=== PATIENT | male | born 1935 | race Caucasian/White ===

== ENCOUNTER 2016-09-17 11:27 | Emergency (ER) | payer MEDICARE ==
[~2016-09-17] VITALS: Ht 170.2 cm; Wt 78.5 kg
[~2016-09-17 11:27] MED LIST: FNT.05A2; FNT.05A2 IV; LIDO5JEL4; PANT40TA PO; SCR1T1 PO; TRAM50TA2 PO; [UNRECOGNIZED DRUG - CODE]; [UNRECOGNIZED DRUG - CODE] IV; [UNRECOGNIZED DRUG - OTHER] XX
[2016-09-17] MEDS ORDERED: NS IV 1000 ML 1,000 ML IV ONE (12:03)
[2016-09-17 12:24] LABS: BASOPHILS % (AUTO) 0 % (0-10); EOSINOPHILS # (AUTO) 0.1 10^3/uL (0.0-0.3); EOSINOPHILS % (AUTO) 2 % (0-10); LYMPHOCYTES # (AUTO) 1.4 X 10^3 (1.0-4.0); LYMPHOCYTES % (AUTO) 19 % (12-44); MEAN CORPUSCULAR HEMOGLOBIN 31 PG (25-34); MEAN CORPUSCULAR HGB CONC 33 G/DL (32-36); MEAN CORPUSCULAR VOLUME 93 FL (80-99); MEAN PLATELET VOLUME 10.3 FL (7.4-10.4); MONOCYTES % (AUTO) 13 % (0-12); NEUTROPHILS # (AUTO) 4.8 X 10^3 (1.8-7.8); NEUTROPHILS % (AUTO) 66 % (42-75); PLATELET COUNT 248 10^3/uL (130-400); RED BLOOD COUNT 4.56 10^6/uL (4.35-5.85); WHITE BLOOD COUNT 7.3 10^3/uL (4.3-11.0)
--- NOTE | 2016-09-17 12:27 | ED General ---
General Chief Complaint: Cardiac/General Problems Stated Complaint: HEART PROBLEMS Nursing Triage Note: PT C/O PALPITATIONS. HE DENIES CP, N/V, DIAPHORESIS, SOA, OR ANY OTHER SYMPTOMS. PT IS VERY VAGUE ABOUT S/S. Nursing Sepsis Screen: No Definite Risk Source of Information: Patient, Family Exam Limitations: Other (History is difficult as patient is very vague about S& S and history.) History of Present Illness Time Seen by Provider: 11:40 Initial Comments Patient presents to the ED initially reporting to the nurse that he is having palpitations, but now states he is not having palpitations. Denies having palpitations today. States he is not really sure why he is here, but "I know that I need to be here." Denies any symptoms at this time. Has been seeing Dr. Cheney for "quite a while" for intermittent left arm numbness. Was scheduled to have an outpatient study done at [facility] last Monday, but states he had diarrhea so he had to cancel it. Thinks maybe they were checking his brain, but continues to point to his carotid region. Also reports having "heart problems" but does not recall what they are or what the symptoms were. Denies SOA, headache, confusion, dizziness, lightheadedness, fever, urinary symptoms, or GI symptoms. Daughter reports having to move in with him a few months ago, because "I think he is losing it." History is difficult as patient is very vague about S&S and history. Timing/Duration: Other (patient reports "it has been going on quite a while".) Allergies and Home Medications Allergies Coded Allergies: No Known Drug Allergies (Unverified , 07/02/12) Home Medications Pantoprazole Sodium 40 Mg Tablet.dr, 40 MG PO DAILY, (Reported) Past Kttquct-Vfzswt-Lfirvu Hx Patient Social History Alcohol Use: Denies Use Recreational Drug Use: No Smoking Status: Never a Smoker 2nd Hand Smoke Exposure: No Recent Foreign Travel: No Contact w/Someone Who Travel: No Recent Infectious Disease Expo: No Recent Hopitalizations: No Surgeries HX Surgeries: Yes (HERNIa repair x2, lymph node by of the neck, c/scope) Respiratory Hx Respiratory Disorders: Yes (patient denies but history of COPD and bronchitis per past records) Respiratory Disorders: Chronic Bronchitis, COPD Cardiovascular Hx Cardiac Disorders: Yes (patient denies, but hyperlipidemia, hypertension, arrhythmia per records) Neurological Hx Neurological Disorders: No Reproductive System Hx Reproductive Disorders: No Genitourinary Hx Genitourinary Disorders: No Gastrointestinal Hx Gastrointestinal Disorders: No Musculoskeletal Hx Musculoskeletal Disorders: Yes (DEGENERTIVE JOINT DISEASE/ARTHRITIS) Endocrine Hx Endocrine Disorders: No HEENT HX 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 Physical Exam Vital Signs Vital Sign - Last 12Hours 09/17/16 11:30 Temp 98.1 Pulse 81 Resp 20 B/P (MAP) 143/82 Pulse Ox 98 O2 Delivery Room Air Capillary Refill : Less Than 3 Seconds Progress/Results/Core Measures Results/Orders Lab Results Laboratory Tests Test 09/17/16 12:05 09/17/16 13:13 Range/Units White Blood Count 7.3 4.3-11.0 10^3/uL Red Blood Count 4.56 4.35-5.85 10^6/uL Hemoglobin 14.0 13.3-17.7 G/DL Hematocrit 43 40-54 % Mean Corpuscular Volume 93 80-99 FL Mean Corpuscular Hemoglobin 31 25-34 PG Mean Corpuscular Hemoglobin Concent 33 32-36 G/DL Red Cell Distribution Width 13.0 10.0-14.5 % Platelet Count 248 130-400 10^3/uL Mean Platelet Volume 10.3 7.4-10.4 FL Neutrophils (%) (Auto) 66 42-75 % Lymphocytes (%) (Auto) 19 12-44 % Monocytes (%) (Auto) 13 H 0-12 % Eosinophils (%) (Auto) 2 0-10 % Basophils (%) (Auto) 0 0-10 % Neutrophils # (Auto) 4.8 1.8-7.8 X 10^3 Lymphocytes # (Auto) 1.4 1.0-4.0 X 10^3 Monocytes # (Auto) 1.0 0.0-1.0 X 10^3 Eosinophils # (Auto) 0.1 0.0-0.3 10^3/uL Basophils # (Auto) 0.0 0.0-0.1 10^3/uL Prothrombin Time 13.0 12.2-14.7 SEC INR Comment 1.0 0.8-1.4 Activated Partial Thromboplast Time 28 24-35 SEC D-Dimer 0.90 H 0.00-0.49 UG/ML Sodium Level 142 135-145 MMOL/L Potassium Level 4.5 3.6-5.0 MMOL/L Chloride Level 106 98-107 MMOL/L Carbon Dioxide Level 26 21-32 MMOL/L Anion Gap 10 5-14 MMOL/L Blood Urea Nitrogen 18 7-18 MG/DL Creatinine 1.13 0.60-1.30 MG/DL Estimat Glomerular Filtration Rate > 60 BUN/Creatinine Ratio 16 Glucose Level 102 70-105 MG/DL Calcium Level 9.2 8.5-10.1 MG/DL Magnesium Level 2.3 1.8-2.4 MG/DL Total Bilirubin 0.5 0.1-1.0 MG/DL Aspartate Amino Transf (AST/SGOT) 18 5-34 U/L Alanine Aminotransferase (ALT/SGPT) 18 0-55 U/L Alkaline Phosphatase 66 40-136 U/L Total Creatine Kinase 102 30-200 U/L Creatine Kinase MB 1.6 <6.6 NG/ML Myoglobin 52.3 10.0-92.0 NG/ML Troponin I < 0.30 <0.30 NG/ML Total Protein 6.2 L 6.4-8.2 G/DL Albumin 3.8 3.2-4.5 G/DL Urine Color YELLOW Urine Clarity SLIGHTLY CLOUDY Urine pH 5 5-9 Urine Specific Mar Lin 1.020 1.016-1.022 Urine Protein 3+ H NEGATIVE Urine Glucose (UA) NEGATIVE NEGATIVE Urine Ketones 1+ H NEGATIVE Urine Nitrite NEGATIVE NEGATIVE Urine Bilirubin NEGATIVE NEGATIVE Urine Urobilinogen NORMAL NORMAL MG/DL Urine Leukocyte Esterase 1+ H NEGATIVE Urine RBC (Auto) 1+ H NEGATIVE Urine RBC RARE /HPF Urine WBC RARE /HPF Urine Squamous Epithelial Cells NONE /HPF Urine Crystals NONE /LPF Urine Bacteria NEGATIVE /HPF Urine Casts NONE /LPF Urine Mucus SMALL H /LPF Urine Culture Indicated NO My Orders Orders - SHAYLA LEWIS PA Cbc With Automated Diff (09/17/16 11:49) Magnesium (09/17/16 11:49) Chest 1 View, Ap/Pa Only (09/17/16 11:49) Ekg Tracing (09/17/16 11:49) Cardiac Profile 1 (09/17/16 11:49) Comprehensive Metabolic Panel (09/17/16 11:49) Myoglobin Serum (09/17/16 11:49) Protime With Inr (09/17/16 11:49) Partial Thromboplastin Time (09/17/16 11:49) Monitor-Rhythm Ecg Trace Only (09/17/16 11:49) Lipid Panel (09/18/16 06:00) Saline Lock/Iv-Start (09/17/16 11:49) Creatine Kinase (09/17/16 11:49) Creatine Kinase Mb (09/17/16 11:49) Fibrin Degradation Products (09/17/16 11:49) Ct Head Wo (09/17/16 12:03) Ua Culture If Indicated (09/17/16 12:03) Ns Iv 1000 Ml (Sodium Chloride 0.9%) (09/17/16 12:03) Medications Given in ED Current Medications Medications Dose Ordered Sig/Kimmy Route Start Time Stop Time Status Last Admin Dose Admin Sodium Chloride 1,000 ml @ 0 mls/hr Q0M ONCE IV 09/17/16 12:03 09/17/16 12:05 DC 09/17/16 12:14 0 MLS/HR Vital Signs/I&O Vital Sign - Last 12Hours 09/17/16 11:30 Temp 98.1 Pulse 81 Resp 20 B/P (MAP) 143/82 Pulse Ox 98 O2 Delivery Room Air Blood Pressure Mean: 102 Departure Impression Impression: Primary Impression: Well adult Additional Impression: Volume depletion Disposition: 01 HOME, SELF-CARE Condition: Improved Departure-Patient Inst. Decision time for Depature: 14:37 Referrals: DOLORES MADDOX MD FACP FACC CCDS Elsa TALLEY MD, BASHAR J MD SEGLIE, FLOYD R MD (PCP/Family) Primary Care Physician Patient Instructions: Dehydration, Adult (DC), Chest Pain (DC) Add. Discharge Instructions: All discharge instructions reviewed with patient and/or family. Voiced understanding. 81 mg aspirin daily. Continue usual home medications. Drink plenty of fluids. Follow-up with Dr. Cheney on Monday for recheck and possible need for MRI of the brain, contact their office first thing Monday morning for appointment time. Follow-up with the fish hatchery manager of your choice as an outpatient this week for further evaluation and management, contact their office for appointment time. Return to the emergency department for chest pain , shortness of air, dizziness, changes in behavior, slurred speech, weakness, fever, vomiting, inability to urinate, headache, numbness, or any other concerns. SHAYLA LEWIS September 17, 2016 12:27
[2016-09-17 12:39] LABS: ALANINE AMINOTRANSFERASE 18 U/L (0-55); ALBUMIN 3.8 G/DL (3.2-4.5); ANION GAP 10 MMOL/L (5-14); ASPARTATE AMINO TRANSFERASE 18 U/L (5-34); BILIRUBIN,TOTAL 0.5 MG/DL (0.1-1.0); BLOOD UREA NITROGEN 18 MG/DL (7-18); BUN/CREATININE RATIO 16; CALCIUM 9.2 MG/DL (8.5-10.1); CARBON DIOXIDE 26 MMOL/L (21-32); CHLORIDE 106 MMOL/L (98-107); CREATINE KINASE 102 U/L (30-200); CREATININE SERUM 1.13 MG/DL (0.60-1.30); GFR ESTIMATED > 60; GLUCOSE 102 MG/DL (70-105); MAGNESIUM 2.3 MG/DL (1.8-2.4); POTASSIUM 4.5 MMOL/L (3.6-5.0); SODIUM 142 MMOL/L (135-145); TOTAL PROTEIN 6.2 G/DL (6.4-8.2)
[2016-09-17 12:47] LABS: MYOGLOBIN SERUM 52.3 NG/ML (10.0-92.0)
--- NOTE | 2016-09-17 13:02 | Diagnostic Imaging Report ---
Indication: Heart problems, confusion Comparison: None available Technique: Single frontal radiograph view of the chest dated September 17, 2016. Findings: The cardiac silhouette is mildly enlarged. No significant pulmonary vascular congestion. Senescent changes of the lungs without focal pulmonary opacity. No pleural effusion. No pneumothorax. No acute osseous abnormality. Impression: Mild cardiomegaly without overt congestive heart failure or additional superimposed acute cardiopulmonary abnormality. Dictated by: Dictated on workstation # [id number]
[2016-09-17 13:24] LABS: BILIRUBIN,URINE NEGATIVE (NEGATIVE); KETONES,URINE 1+ (NEGATIVE); LEUKOCYTE ESTERASE ,URINE 1+ (NEGATIVE); NITRITE,URINE NEGATIVE (NEGATIVE); PH,URINE 5 (5-9); PROTEIN,URINE 3+ (NEGATIVE); UROBILINOGEN,URINE NORMAL (NORMAL)
--- NOTE | 2016-09-17 13:33 | Diagnostic Imaging Report ---
PROCEDURE: CT head without contrast. TECHNIQUE: Multiple contiguous axial images were obtained through the brain without the use of intravenous contrast. DATE: September 17, 2016. COMPARISON: None. INDICATION: 81-year-old male, confusion. FINDINGS: The ventricles and cerebral spinal fluid spaces are of normal size and configuration for the patient's age. There is no mass effect or midline shift. There is no acute intracranial hemorrhage. There is no abnormal extra-axial fluid collection. The visualized portions of the paranasal sinuses, mastoid air cells and middle ears are well aerated. IMPRESSION: 1. No identified acute intracranial abnormality. Dictated by: Dictated on workstation # [id number]
[2016-09-17 13:45] LABS: WBC,URINE RARE /HPF
[2016-09-17 14:41] VITALS: BP 143/82
== END 2016-09-17 14:41 | disposition home or self-care (01) ==
LOC: EDUNIT# 11:27 → ER 11:29
DX: E87.6 Hypokalemia (principal); I25.10 Atherosclerotic heart disease of native coronary artery without angina pectoris; E78.5 Hyperlipidemia, unspecified; I10 Essential (primary) hypertension; J44.9 Chronic obstructive pulmonary disease, unspecified; Z79.899 Other long term (current) drug therapy
CPT/HCPCS: 36415; 70450; 71010; 80053; 81000; 82550; 82553; 83735; 83874; 84484; 85025; 85379; 85610; 85730; 93005; 93041; 96360

== ENCOUNTER → 2016-09-26 | Outpatient (CLI) | payer MEDICARE ==
[2016-09-26 10:15] LABS: BASOPHILS % (AUTO) 0 % (0-10); EOSINOPHILS # (AUTO) 0.2 10^3/uL (0.0-0.3); EOSINOPHILS % (AUTO) 3 % (0-10); LYMPHOCYTES # (AUTO) 1.5 X 10^3 (1.0-4.0); LYMPHOCYTES % (AUTO) 29 % (12-44); MEAN CORPUSCULAR HEMOGLOBIN 30 PG (25-34); MEAN CORPUSCULAR HGB CONC 33 G/DL (32-36); MEAN CORPUSCULAR VOLUME 92 FL (80-99); MEAN PLATELET VOLUME 10.1 FL (7.4-10.4); MONOCYTES # (AUTO) 0.6 X 10^3 (0.0-1.0); MONOCYTES % (AUTO) 13 % (0-12); NEUTROPHILS # (AUTO) 2.8 X 10^3 (1.8-7.8); NEUTROPHILS % (AUTO) 55 % (42-75); PLATELET COUNT 259 10^3/uL (130-400); RED CELL DISTRIBUTION WIDTH 12.8 % (10.0-14.5); WHITE BLOOD COUNT 5.1 10^3/uL (4.3-11.0)
[2016-09-26 10:39] LABS: ALANINE AMINOTRANSFERASE 21 U/L (0-55); ALBUMIN 4.2 G/DL (3.2-4.5); ANION GAP 10 MMOL/L (5-14); ASPARTATE AMINO TRANSFERASE 20 U/L (5-34); BILIRUBIN,TOTAL 0.4 MG/DL (0.1-1.0); BLOOD UREA NITROGEN 15 MG/DL (7-18); BUN/CREATININE RATIO 16; CALCIUM 9.5 MG/DL (8.5-10.1); CARBON DIOXIDE 25 MMOL/L (21-32); CHLORIDE 105 MMOL/L (98-107); CREATININE SERUM 0.96 MG/DL (0.60-1.30); GFR ESTIMATED > 60; GLUCOSE 103 MG/DL (70-105); POTASSIUM 4.5 MMOL/L (3.6-5.0); SODIUM 140 MMOL/L (135-145); TOTAL PROTEIN 6.7 G/DL (6.4-8.2)
[2016-09-27 08:02] LABS: FOLIC ACID >24.0 ng/mL (1.5-24.0)
== END ==
LOC: LAB 09:42
PROVIDERS: ATTEND Family Medicine
DX: R29.898 Other symptoms and signs involving the musculoskeletal system (principal)
CPT/HCPCS: 36415; 80053; 82607; 82746; 85025

== ENCOUNTER → 2016-10-06 | Outpatient (CLI) | payer MEDICARE ==
[~2016-10-06] MED LIST changes: +CATHETER FLUSH 10 ML SYR IV PRN; +IOHEXOL 350 MG/ML 100 ML (OMNIPAQUE 350) VIAL IV ONE; +NS 100 ML (IVPB) BAG IV ONE
[2016-10-06 08:26] LABS: BASOPHILS % (AUTO) 0 % (0-10); EOSINOPHILS # (AUTO) 0.2 10^3/uL (0.0-0.3); EOSINOPHILS % (AUTO) 4 % (0-10); LYMPHOCYTES # (AUTO) 2.1 X 10^3 (1.0-4.0); LYMPHOCYTES % (AUTO) 31 % (12-44); MEAN CORPUSCULAR HEMOGLOBIN 30 PG (25-34); MEAN CORPUSCULAR HGB CONC 33 G/DL (32-36); MEAN CORPUSCULAR VOLUME 91 FL (80-99); MEAN PLATELET VOLUME 10.3 FL (7.4-10.4); MONOCYTES # (AUTO) 0.6 X 10^3 (0.0-1.0); MONOCYTES % (AUTO) 9 % (0-12); NEUTROPHILS # (AUTO) 3.8 X 10^3 (1.8-7.8); NEUTROPHILS % (AUTO) 56 % (42-75); PLATELET COUNT 171 10^3/uL (130-400); RED BLOOD COUNT 4.88 10^6/uL (4.35-5.85); WHITE BLOOD COUNT 6.9 10^3/uL (4.3-11.0)
[2016-10-06 08:46] LABS: ALANINE AMINOTRANSFERASE 24 U/L (0-55); ALBUMIN 4.1 G/DL (3.2-4.5); ANION GAP 11 MMOL/L (5-14); ASPARTATE AMINO TRANSFERASE 24 U/L (5-34); BILIRUBIN,TOTAL 0.5 MG/DL (0.1-1.0); BLOOD UREA NITROGEN 20 MG/DL (7-18); BUN/CREATININE RATIO 22; CALCIUM 9.4 MG/DL (8.5-10.1); CARBON DIOXIDE 23 MMOL/L (21-32); CHLORIDE 107 MMOL/L (98-107); CREATININE SERUM 0.93 MG/DL (0.60-1.30); GFR ESTIMATED > 60; GLUCOSE 105 MG/DL (70-105); POTASSIUM 4.2 MMOL/L (3.6-5.0); SODIUM 141 MMOL/L (135-145); TOTAL PROTEIN 6.6 G/DL (6.4-8.2)
--- NOTE | 2016-10-06 10:33 | Diagnostic Imaging Report ---
PROCEDURE: CT head with and without contrast. TECHNIQUE: Multiple contiguous axial images were obtained through the brain before and after the administration of intravenous contrast. INDICATION: Left arm weakness. FINDINGS: The unenhanced phase demonstrates no intracranial hemorrhage. There is periventricular and deep white matter hypodensities suggestive of chronic microvascular ischemic changes and appear similar to prior exam of 09/17/16 with no associated mass effect or postcontrast enhancement. No enhancing mass in the brain or extra-axial space identified. Vascular enhancement appears grossly unremarkable. The calvarium, the paranasal sinuses and orbits appear grossly unremarkable. IMPRESSION: White matter findings are compatible with chronic microvascular ischemic changes. No acute process. Dictated by: Dictated on workstation # [id number]
--- NOTE | 2016-10-06 14:16 | Diagnostic Imaging Report ---
PROCEDURE: MR imaging cervical spine without contrast. TECHNIQUE: Multiplanar, multisequence MR imaging of the cervical spine was performed without contrast. INDICATION: Left hand numbness. History of fall in July 2015. FINDINGS: There is straightening of the upper to mid cervical spine. The vertebral body heights are preserved. There is mild disc height loss at C4/5 and C5/6 with endplate irregularity and associated posterior osteophytes at C4/5. There is no significant marrow signal abnormality. The foramen magnum and upper cervical canal are widely patent. Spinal cord has normal signal. C2/3: No disc herniation, no spinal canal or foraminal stenosis. C3/4: There is minimal disc spur complex with no spinal canal stenosis. Uncovertebral and facet hypertrophy, worse on the left, results in [id number] left foraminal stenosis. There is mild foramina stenosis on the right. C4/5: There is a disc spur complex eccentric to the right resulting in moderate central canal stenosis reducing the AP dimension of the central canal to 7 mm and is associated with minimal cord compression. No cord signal abnormality. The foramina demonstrate bilateral severe stenosis. C5/6: There is a right paracentral and right uncovertebral posteriorly projecting osteophyte seen. No central canal stenosis. There is mild stenosis of the AP dimension of the right side of the canal, however. No cord compression. The foramina demonstrate moderate stenosis on the left and severe stenosis on the right. C6/7: There is a mild disc spur complex and posterior ligamentous hypertrophy. No central canal stenosis or cord compression. The foramina demonstrate severe stenosis on the left and mild stenosis on the right. C7/T1: No disc herniation, no spinal canal or foraminal stenosis. IMPRESSION: There is [id number] spinal canal stenosis at the C4/5 level with associated minimal cord compression. No cord signal abnormality. There is multilevel severe foraminal stenosis. Dictated by: Dictated on workstation # [id number]
[2016-10-07 07:15] LABS: FOLIC ACID >24.0 ng/mL (1.5-24.0)
== END ==
LOC: RAD 07:57
PROVIDERS: ATTEND Family Medicine
DX: M48.02 Spinal stenosis, cervical region (principal); R20.2 Paresthesia of skin; R29.898 Other symptoms and signs involving the musculoskeletal system
CPT/HCPCS: 36415; 70470; 72141; 80053; 82607; 82746; 85025

== ENCOUNTER 2017-01-19 08:51 | Outpatient (RCR) | payer MEDICARE, OTHER ==
[~2017-01-19 08:51] MED LIST changes: -CATHETER FLUSH 10 ML SYR IV PRN; -IOHEXOL 350 MG/ML 100 ML (OMNIPAQUE 350) VIAL IV ONE; -NS 100 ML (IVPB) BAG IV ONE
== END 2017-02-01 | disposition home or self-care (01) ==
PROVIDERS: ATTEND Family Medicine
DX: R20.0 Anesthesia of skin (principal); R20.2 Paresthesia of skin

== ENCOUNTER 2017-06-25 18:06 | Emergency (ER) | payer MEDICARE ==
[~2017-06-25] VITALS: Ht 182.9 cm; Wt 81.6 kg
--- OUTSIDE RECORDS SUMMARY | 2017-06-25 18:13 | XMS REPORT | Continuity of Care Document ---
Author Author [facility] Organization [facility] Address Unknown Phone Unavailable Allergies Active Description Code Type Severity Reaction Onset Reported/Identified Relationship to Patient Clinical Status Yes No Known Drug Allergies [id number] Drug Allergy Unknown N/A 07/02/2012 Medications There is no data. 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, TYPE II OR UNSPEC TY 11/27/2012 DIXIE YUNG Ot 585.3 CHRONIC KIDNEY DISEASE, STAGE III (MODER 11/27/2012 DIXIE YUNG Ot V58.11 ENCOUNTER FOR ANTINEOPLASTIC CHEMOTHERAP 02/13/2013 MIGUEL GREEN MD Ot 202.80 OTH LYMPHOMAS EXTRANODAL SOLID ORGAN U 02/13/2013 MIGUEL GREEN MD Ot 455.0 INT HEMORRHOID W/O COMPL 02/13/2013 MIGUEL GREEN MD Ot V67.51 F/U EXAM-HIGH RISK RX 03/19/2013 DIXIE YUNG Ot 202.80 OTH LYMPHOMAS EXTRANODAL SOLID ORGAN U 03/19/2013 DIXIE YUNG Ot 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, TYPE II OR UNSPEC TY 03/19/2013 DIXIE YUNG Ot 585.3 CHRONIC KIDNEY DISEASE, STAGE III (MODER 04/05/2013 SHAYLA CARPIO Ot 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 04/05/2013 SHAYLA CARPIO Ot 784.99 OTHER SYMPTOMS INVOLVING HEAD AND NECK 04/05/2013 SHAYLA CARPIO Ot 787.20 DYSPHAGIA, UNSPECIFIED 04/17/2013 MIGUEL GREEN MD Ot 202.80 OTH LYMPHOMAS EXTRANODAL SOLID ORGAN U 04/17/2013 MIGUEL GREEN MD Ot 530.11 REFLUX ESOPHAGITIS 04/17/2013 MIGUEL GREEN MD Ot 535.50 UNSP GASTRITIS GASTRODUODENITIS W/O ME 04/17/2013 MIGUEL GREEN MD Ot 553.3 DIAPHRAGMATIC HERNIA 08/13/2013 DIXIE YUNG N Ot 202.80 OTH LYMPHOMAS EXTRANODAL SOLID ORGAN U 08/13/2013 DIXIE YUNG N Ot 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, TYPE II OR UNSPEC TY 08/13/2013 DIXIE YUNG N Ot 585.3 CHRONIC KIDNEY DISEASE, STAGE III (MODER 08/13/2013 DIXIE YUNG N Ot V58.11 ENCOUNTER FOR ANTINEOPLASTIC CHEMOTHERAP 12/04/2013 DIXIE YUNG N Ot 202.80 OTH LYMPHOMAS EXTRANODAL SOLID ORGAN U 12/04/2013 DILSHADDIXIE CEVALLOS N Ot 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, TYPE II OR UNSPEC TY 12/04/2013 DIXIE YUNG N Ot 585.3 CHRONIC KIDNEY DISEASE, STAGE III (MODER 12/04/2013 DILSHADDIXIE N Ot V58.11 ENCOUNTER FOR ANTINEOPLASTIC CHEMOTHERAP 01/15/2014 LAVERNE CHRISTIANSON DO Ot 719.46 JOINT PAIN-L/LEG 03/26/2014 DILSHADDIXIE CEVALLOS N Ot 202.80 OTH LYMPHOMAS EXTRANODAL SOLID ORGAN U 03/26/2014 DILSHADSIVAKUMARAN N Ot 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, TYPE II OR UNSPEC TY 03/26/2014 DIXIE YUNG N Ot 585.3 CHRONIC KIDNEY DISEASE, STAGE III (MODER 03/26/2014 DILSHADDIXIE N Ot V58.11 ENCOUNTER FOR ANTINEOPLASTIC CHEMOTHERAP 03/26/2014 DIXIE YUNG N Ot V58.69 OTH MED,LT,CURRENT USE 04/16/2014 DIXIE YUNG N Ot 202.80 04/16/2014 DILSHAD, BOBAN N Ot 250.00 04/16/2014 DILSHAD, BOBAN N Ot 585.3 04/16/2014 DILSHAD, BOBAN N Ot V58.11 04/16/2014 DILSHAD, BOBAN N Ot V58.69 04/18/2014 DILSHAD, BOBAN N Ot 202.80 04/18/2014 DILSHAD, BOBAN N Ot 250.00 04/18/2014 DILSHAD, BOBAN N Ot 585.3 04/18/2014 DILSHAD, BOBAN N Ot V58.11 04/18/2014 DILSHAD, BOBAN N Ot V58.69 05/06/2014 DILSHAD, BOBAN N Ot 202.80 05/06/2014 DILSHAD, BOBAN N Ot 250.00 05/06/2014 DILSHAD, BOBCARMEN N Ot 585.3 05/06/2014 DILSHAD, BOBAN N Ot V58.11 05/06/2014 DILSHAD, BOBAN N Ot V58.69 05/07/2014 [facility]IS [facility] SURVEYOR Ot 202.80 05/07/2014 DAVIS [facility] SURVEYOR Ot 250.00 05/07/2014 DAVIS [facility] SURVEYOR Ot 585.3 05/07/2014 DAVIS [facility] SURVEYOR Ot V58.69 06/18/2014 DILSHAD, BOBAN N Ot 202.80 06/18/2014 DILSHAD, BOBAN N Ot 250.00 06/18/2014 DILSHAD, BOBAN N Ot 585.3 06/18/2014 DILSHADDIXIE N Ot V58.11 06/18/2014 DILSHAD BOBAN N Ot V58.69 07/15/2014 DILSHAD, BOBAN N Ot 202.80 OTH LYMPHOMAS EXTRANODAL SOLID ORGAN U 07/15/2014 DILSHAD, BOBAN N Ot 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, TYPE II OR UNSPEC TY 07/15/2014 DILSHAD, BOBAN N Ot 585.3 CHRONIC KIDNEY DISEASE, STAGE III (MODER 07/15/2014 DILSHAD BOBAN N Ot V58.11 ENCOUNTER FOR ANTINEOPLASTIC CHEMOTHERAP 07/15/2014 DILSHADSIVAKUMARAN N Ot V58.69 OTH MED,LT,CURRENT USE 08/13/2014 DILSHAD BOBAN N Ot 202.80 08/13/2014 DILSHAD, BOBAN N Ot 250.00 08/13/2014 DILSHAD, BOBCARMEN N Ot 585.3 08/13/2014 DILSHAD, BOBAN N Ot V58.11 08/13/2014 DILSHAD, BOBCARMEN N Ot V58.69 08/14/2014 DILSHAD, BOBAN N Ot 202.80 08/14/2014 DILSHAD, BOBAN N Ot 250.00 08/14/2014 DILSHAD, DIXIE N Ot 585.3 08/14/2014 DILSHAD, DIXIE N Ot V58.11 08/14/2014 DILSHAD, BOBCARMEN N Ot V58.69 08/20/2014 DILSHAD, BOBAN N Ot 202.80 08/20/2014 DILSHAD, BOBCARMEN N Ot 250.00 08/20/2014 DILSHAD, DIXIE N Ot 585.3 08/20/2014 DILSHAD, BOBCARMEN N Ot V58.11 08/20/2014 DILSHAD, BOBCARMEN N Ot V58.69 08/20/2014 DILSHAD, BOBCARMEN N Ot 202.80 08/20/2014 DILSHAD, DIXIE N Ot 250.00 08/20/2014 DILSHAD, DIXIE N Ot 585.3 08/20/2014 DILSHAD, DIXIE N Ot V58.11 08/20/2014 DILSHAD, BOBCARMEN N Ot V58.69 09/09/2014 [facility] SURVEYOR Ot 202.80 09/09/2014 DAVIS [facility] SURVEYOR Ot 250.00 09/09/2014 DAVIS MCCLENDON S HEALTH FACILITIES SURVEYOR Ot 585.3 09/09/2014 DAVIS MCCLENDON S HEALTH FACILITIES SURVEYOR Ot V58.69 10/29/2014 DAVIS MCCLENDON S HEALTH FACILITIES SURVEYOR Ot 202.80 10/29/2014 DAVIS MCCLENDON S HEALTH FACILITIES SURVEYOR Ot 250.00 10/29/2014 DAVIS MCCLENDON S HEALTH FACILITIES SURVEYOR Ot 585.3 10/29/2014 DAVIS MCCLENDON S HEALTH FACILITIES SURVEYOR Ot V58.69 11/11/2014 DILSHAD, DIXIE N Ot 202.80 OTH LYMPHOMAS EXTRANODAL SOLID ORGAN U 11/11/2014 DILSHAD, BOBAN N Ot 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, TYPE II OR UNSPEC TY 11/11/2014 DILSHAD BOBCARMEN N Ot 585.3 CHRONIC KIDNEY DISEASE, STAGE III (MODER 11/11/2014 DILSHAD, DIXIE N Ot V58.11 ENCOUNTER FOR ANTINEOPLASTIC CHEMOTHERAP 11/11/2014 DILSHAD, DIXIE N Ot V58.69 OTH MED,LT,CURRENT USE 12/24/2014 DILSHAD, DIXIE N Ot 202.80 12/24/2014 DILSHAD, BOBAN N Ot 250.00 12/24/2014 DILSHAD, BOBAN N Ot 585.3 12/24/2014 DILSHAD, BOBAN N Ot V58.11 12/24/2014 DILSHAD, BOBAN N Ot V58.69 12/30/2014 DILSHAD, BOBAN N Ot 202.80 12/30/2014 DILSHAD, BOBAN N Ot 250.00 12/30/2014 DILSHAD, BOBCARMEN N Ot 585.3 12/30/2014 DILSHAD, BOBAN N Ot V58.11 12/30/2014 DILSHAD, BOBAN N Ot V58.69 01/01/2015 DILSHAD, BOBAN N Ot 202.80 01/01/2015 DILSHAD, BOBAN N Ot 250.00 01/01/2015 DILSHAD, BOBAN N Ot 585.3 01/01/2015 DILSHAD, BOBAN N Ot V58.11 01/01/2015 DILSHAD, BOBAN N Ot V58.69 01/28/2015 DILSHAD, BOBAN N Ot 202.80 01/28/2015 DILSHAD, BOBAN N Ot 250.00 01/28/2015 DILSHAD, BOBAN N Ot 585.3 01/28/2015 DILSHAD, BOBAN N Ot V58.69 01/28/2015 Ot 784.2 01/28/2015 Ot V16.9 01/28/2015 Ot 784.2 01/28/2015 Ot 202.80 01/28/2015 Ot 250.00 01/28/2015 DAVIS [facility] SURVEYOR Ot 202.80 01/28/2015 DAVIS [facility] SURVEYOR Ot 202.80 01/28/2015 DAVIS [facility] SURVEYOR Ot 250.00 01/28/2015 DAVIS [facility] SURVEYOR Ot 585.3 01/28/2015 DAVIS [facility] SURVEYOR Ot 202.80 01/28/2015 DAVIS [facility] SURVEYOR Ot 250.00 01/28/2015 [facility] S [facility] FACILIT[facility] SURVEYOR Ot 585.3 01/28/2015 HAKAN [facility] S [facility] FACILIT[facility] SURVEYOR Ot 202.80 01/28/2015 HAKAN DAVIS S HEALTH FACILITIES SURVEYOR Ot 202.80 01/28/2015 MCCLENDONBYRON S HEALTH FACILITIES SURVEYOR Ot 250.00 01/28/2015 HAKAN [facility] S [facility] FACILIT[facility] SURVEYOR Ot 585.3 01/28/2015 PETER CACERES, MIGUEL Ot V72.84 01/28/2015 PETER CACERES, MIGUEL Ot V72.84 01/28/2015 HAKAN [facility] S HE[facility] FACILITIES SURVEYOR Ot 202.80 01/28/2015 [facility] S HEALTH FACILITIES SURVEYOR Ot 250.00 01/28/2015 HAKAN [facility] S [facility] FACILITIES SURVEYOR Ot 585.3 01/28/2015 HAKAN [facility] S [facility]AC[facility] SURVEYOR Ot 202.80 01/28/2015 HAKAN [facility] S [facility] FACILIT[facility] SURVEYOR Ot 250.00 01/28/2015 [facility]AKAN [facility] S HEALTH FACILITIES SURVEYOR Ot 585.3 01/28/2015 [facility]AN [facility] S HEALTH FACILITIES SURVEYOR Ot 202.80 01/28/2015 [facility] S HEALTH FACILITIES SURVEYOR Ot 250.00 01/28/2015 HAKAN [facility] S [facility] FACILITIES SURVEYOR Ot 585.3 01/28/2015 HAKAN [facility] S [facility] FACILITIES SURVEYOR Ot V58.69 01/28/2015 [facility] S HEALTH FACILITIES SURVEYOR Ot 202.80 01/28/2015 [facility] S HEALTH FACILITIES SURVEYOR Ot 250.00 01/28/2015 [facility] S HE[facility] FACILITIES SURVEYOR Ot 585.3 01/28/2015 [facility] S HEALTH FACILITIES SURVEYOR Ot V58.69 01/28/2015 [facility] S HE[facility] FACILITIES SURVEYOR Ot 202.80 01/28/2015 [facility] S HEALTH FACILITIES SURVEYOR Ot 250.00 01/28/2015 [facility] S HE[facility] FACILITIES SURVEYOR Ot 585.3 01/28/2015 [facility] S HEALTH FACILITIES SURVEYOR Ot V58.69 01/28/2015 [facility] S HE[facility] FACILITIES SURVEYOR Ot 202.80 01/28/2015 [facility] S HE[facility] FACILITIES SURVEYOR Ot 250.00 01/28/2015 [facility] S HE[facility] FACILITIES SURVEYOR Ot 585.3 01/28/2015 DAVIS [facility] SURVEYOR Ot V58.69 01/28/2015 DIXIE YUNG N Ot 202.80 01/28/2015 DIXIE YUNG N Ot 250.00 01/28/2015 DIXIE YUNG N Ot 585.3 01/28/2015 DIXIE YUNG N Ot V58.69 02/04/2015 DIXIE YUNG Ot 202.80 OTH LYMPHOMAS EXTRANODAL SOLID ORGAN U 02/04/2015 DIXIE YUNG N Ot 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, TYPE II OR UNSPEC TY 02/04/2015 DIXIE YUNG N Ot 585.3 CHRONIC KIDNEY DISEASE, STAGE III (MODER 02/04/2015 DIXIE YUNG Ot V58.69 OTH MED,LT,CURRENT USE 03/25/2015 Ot 784.2 03/25/2015 Ot V16.9 03/25/2015 Ot 784.2 03/25/2015 Ot 202.80 03/25/2015 Ot 250.00 03/25/2015 DAVIS [facility] SURVEYOR Ot 202.80 03/25/2015 DAVIS [facility] SURVEYOR Ot 202.80 03/25/2015 DAVIS MCCLENDON S HE[facility] FACILITIES SURVEYOR Ot 250.00 03/25/2015 DAVIS MCC[facility]END[facility]AC[facility] SURVEYOR Ot 585.3 03/25/2015 DAVIS [facility] SURVEYOR Ot 202.80 03/25/2015 DAVIS MCCLENDON S HEALTH FACILITIES SURVEYOR Ot 250.00 03/25/2015 DAVIS MCCLENDON S HEALTH FACILITIES SURVEYOR Ot 585.3 03/25/2015 DAVIS MCCLENDON S HEALTH FACILITIES SURVEYOR Ot 202.80 03/25/2015 DAVIS MCC[facility]ENDON [facility]ACIL[facility] SURVEYOR Ot 202.80 03/25/2015 DAVIS [facility]CC[facility]ENDON [facility]AC[facility] SURVEYOR Ot 250.00 03/25/2015 DAVIS [facility]END[facility] SURVEYOR Ot 585.3 03/25/2015 MIGUEL GREEN MD Ot V72.84 03/25/2015 MIGUEL GREEN MD Ot V72.84 03/25/2015 DAVIS [facility]END[facility] SURVEYOR Ot 202.80 03/25/2015 DAVIS MCCLENDON S HEALTH FACILITIES SURVEYOR Ot 250.00 03/25/2015 DAVIS MCCLENDON [facility] FACILITIES SURVEYOR Ot 585.3 03/25/2015 MCCLENDON, HILAH S HEALTH FACILITIES SURVEYOR Ot 202.80 03/25/2015 MCCLENDONDAVIS Foster S HEALTH FACILITIES SURVEYOR Ot 250.00 03/25/2015 MCCLENDONDAVIS Foster S HEALTH FACILITIES SURVEYOR Ot 585.3 03/25/2015 MCCLENDONDAVIS S HEALTH FACILITIES SURVEYOR Ot 202.80 03/25/2015 MCCLENDONDAVIS Foster S HEALTH FACILITIES SURVEYOR Ot 250.00 03/25/2015 MCCLENDONDAVIS S HEALTH FACILITIES SURVEYOR Ot 585.3 03/25/2015 MCCLENDONDAVIS S HEALTH FACILITIES SURVEYOR Ot V58.69 03/25/2015 MCCLENDONDAVIS S HEALTH FACILITIES SURVEYOR Ot 202.80 03/25/2015 MCCLENDONDAVIS Foster S HEALTH FACILITIES SURVEYOR Ot 250.00 03/25/2015 MCCLENDONDAVIS S HEALTH FACILITIES SURVEYOR Ot 585.3 03/25/2015 MCCLENDONDAVIS Foster S HEALTH FACILITIES SURVEYOR Ot V58.69 03/25/2015 HAKANDAVIS S HEALTH FACILITIES SURVEYOR Ot 202.80 03/25/2015 HAKANDAVIS S HEALTH FACILITIES SURVEYOR Ot 250.00 03/25/2015 MCCLENDONDAVIS Foster S HEALTH FACILITIES SURVEYOR Ot 585.3 03/25/2015 MCCLENDONDAVIS Foster S HEALTH FACILITIES SURVEYOR Ot V58.69 03/25/2015 MCCLENDONDAVIS Foster S HEALTH FACILITIES SURVEYOR Ot 202.80 03/25/2015 MCCLENDONDAVIS Foster S HEALTH FACILITIES SURVEYOR Ot 250.00 03/25/2015 MCCLENDONDAVIS Foster S HEALTH FACILITIES SURVEYOR Ot 585.3 03/25/2015 MCCLENDONDAVIS Foster S HEALTH FACILITIES SURVEYOR Ot V58.69 04/15/2015 HAKAN DAVIS S HEALTH FACILITIES SURVEYOR Ot C85.80 04/15/2015 HAKAN DAVIS S HEALTH FACILITIES SURVEYOR Ot E11.9 04/15/2015 MCCLENDONDAVIS Foster S HEALTH FACILITIES SURVEYOR Ot N18.3 04/15/2015 HAKANDAVIS S HEALTH FACILITIES SURVEYOR Ot Z79.899 06/23/2015 DIXIE YUNG Ot 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, UNSPE 06/23/2015 DIXIE YUNG Ot E11.9 TYPE 2 DIABETES MELLITUS WITHOUT COMPLIC 06/23/2015 DIXIE YUNG Ot N18.3 CHRONIC KIDNEY DISEASE, STAGE 3 (MODERAT 06/23/2015 DIXIE YUNG Ot Z79.899 OTHER NORMALIZER (CURRENT) DRUG THERAPY 06/25/2015 DIXIE YUNG N Ot C85.80 06/25/2015 DIXIE YUNG N Ot E11.9 06/25/2015 DIXIE YUNG N Ot N18.3 06/25/2015 DIXIE YUNG N Ot Z79.899 07/28/2015 DIXIE YUNG N Ot C85.80 07/28/2015 DIXIE YUNG N Ot E11.22 07/28/2015 DIXIE YUNG N Ot N18.3 07/28/2015 DIXIE YUNG N Ot Z79.899 07/29/2015 Ot 784.2 07/29/2015 Ot V16.9 07/29/2015 Ot 784.2 07/29/2015 Ot 202.80 07/29/2015 Ot 250.00 07/29/2015 DAVIS MCCLENDON S HEALTH FACILITIES SURVEYOR Ot 202.80 07/29/2015 DAVIS MCCLENDON S HEALTH FACILITIES SURVEYOR Ot 202.80 07/29/2015 DAVIS MCCLENDON S HEALTH FACILITIES SURVEYOR Ot 250.00 07/29/2015 BYRON MCCLENDONAH S HEALTH FACILITIES SURVEYOR Ot 585.3 07/29/2015 BYRON MCCLENDONAH S HEALTH FACILITIES SURVEYOR Ot 202.80 07/29/2015 HAKAN HILAH S HEALTH FACILITIES SURVEYOR Ot 250.00 07/29/2015 BYRON MCCLENDONAH S HEALTH FACILITIES SURVEYOR Ot 585.3 07/29/2015 BYRON MCCLENDONAH S HEALTH FACILITIES SURVEYOR Ot 202.80 07/29/2015 BYRON MCCLENDONAH S HEALTH FACILITIES SURVEYOR Ot 202.80 07/29/2015 BYRON MCCLENDONAH S HEALTH FACILITIES SURVEYOR Ot 250.00 07/29/2015 BYRON MCCLENDONAH S HEALTH FACILITIES SURVEYOR Ot 585.3 07/29/2015 PETER CACERES, MIGUEL Ot V72.84 07/29/2015 MIGUEL GREEN MD Ot V72.84 07/29/2015 DAVIS MCCLENDON S HEALTH FACILITIES SURVEYOR Ot 202.80 07/29/2015 HAKAN HILAH S HEALTH FACILITIES SURVEYOR Ot 250.00 07/29/2015 MCCLENDON, HILAH S HEALTH FACILITIES SURVEYOR Ot 585.3 07/29/2015 MCCLENDON, HILAH S HEALTH FACILITIES SURVEYOR Ot 202.80 07/29/2015 DAVIS MCCLENDON S HEALTH FACILITIES SURVEYOR Ot 250.00 07/29/2015 BYRON MCCLENDONAH S HEALTH FACILITIES SURVEYOR Ot 585.3 07/29/2015 MCCLENDONDAVIS Foster HEALTH FACILITIES SURVEYOR Ot 202.80 07/29/2015 MCCLENDONDAVIS Foster S HEALTH FACILITIES SURVEYOR Ot 250.00 07/29/2015 DAVIS MCCLENDON S HEALTH FACILITIES SURVEYOR Ot 585.3 07/29/2015 DAVIS MCCLENDON S HEALTH FACILITIES SURVEYOR Ot V58.69 07/29/2015 DAVIS MCCLENDON S HEALTH FACILITIES SURVEYOR Ot 202.80 07/29/2015 MCCLENDONDAVIS Foster S HEALTH FACILITIES SURVEYOR Ot 250.00 07/29/2015 DAVIS MCCLENDON S HEALTH FACILITIES SURVEYOR Ot 585.3 07/29/2015 DAVIS MCCLENDON S HEALTH FACILITIES SURVEYOR Ot V58.69 07/29/2015 MCCLENDONDAVIS S HEALTH FACILITIES SURVEYOR Ot 202.80 07/29/2015 MCCLENDONDAVIS Foster S HEALTH FACILITIES SURVEYOR Ot 250.00 07/29/2015 DAVIS MCCLENDON S HEALTH FACILITIES SURVEYOR Ot 585.3 07/29/2015 DAVIS MCCLENDON S HEALTH FACILITIES SURVEYOR Ot V58.69 07/29/2015 MCCLENDONDAVIS Foster S HEALTH FACILITIES SURVEYOR Ot 202.80 07/29/2015 MCCLENDONDAVIS Foster S HEALTH FACILITIES SURVEYOR Ot 250.00 07/29/2015 DAVIS MCCLENDON HE[facility] FACILITIES SURVEYOR Ot 585.3 07/29/2015 DAVIS MCCLENDON S HEALTH FACILITIES SURVEYOR Ot V58.69 07/29/2015 MCCLENDONDAVIS Foster S HEALTH FACILITIES SURVEYOR Ot C85.80 07/29/2015 DAVIS MCCLENDON S HEALTH FACILITIES SURVEYOR Ot E11.9 07/29/2015 MCCLENDONDAVIS Foster S HEALTH FACILITIES SURVEYOR Ot N18.3 07/29/2015 MCCLENDONDAVIS Foster S HEALTH FACILITIES SURVEYOR Ot Z79.899 07/29/2015 DILSHAD DIXIE N Ot C85.80 07/29/2015 DILSHAD, DIXIE N Ot E11.22 07/29/2015 DILSHADSIVAKUMAR CEVALLOSCARMEN N Ot N18.3 07/29/2015 DILSHAD, DIXIE N Ot Z79.899 09/09/2015 Ot 784.2 SWELLING IN HEAD NECK 09/09/2015 Ot V16.9 FAMILY HX- MALIGNANCY NOS 09/09/2015 Ot 784.2 SWELLING IN HEAD NECK 09/09/2015 Ot 202.80 OTH LYMPHOMAS EXTRANODAL SOLID ORGAN U 09/09/2015 Ot 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, TYPE II OR UNSPEC TY 09/09/2015 DAVIS MCCLENDON S HEALTH FACILITIES SURVEYOR Ot 202.80 OTH LYMPHOMAS EXTRANODAL SOLID ORGAN U 09/09/2015 MCCLENDONDAVIS S HEALTH FACILITIES SURVEYOR Ot 202.80 OTH LYMPHOMAS EXTRANODAL SOLID ORGAN U 09/09/2015 MCCLENDON, HILAH S HEALTH FACILITIES SURVEYOR Ot 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, TYPE II OR UNSPEC TY 09/09/2015 DAVIS MCCLENDON S HEALTH FACILITIES SURVEYOR Ot 585.3 CHRONIC KIDNEY DISEASE, STAGE III (MODER 09/09/2015 MCCLENDONDAVIS Foster S HEALTH FACILITIES SURVEYOR Ot 202.80 OTH LYMPHOMAS EXTRANODAL SOLID ORGAN U 09/09/2015 MCCLENDON, HILAH S HEALTH FACILITIES SURVEYOR Ot 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, TYPE II OR UNSPEC TY 09/09/2015 DAVIS MCCLENDON S HEALTH FACILITIES SURVEYOR Ot 585.3 CHRONIC KIDNEY DISEASE, STAGE III (MODER 09/09/2015 DAVIS MCCLENDON S HEALTH FACILITIES SURVEYOR Ot 202.80 OTH LYMPHOMAS EXTRANODAL SOLID ORGAN U 09/09/2015 DAVIS MCCLENDON S HEALTH FACILITIES SURVEYOR Ot 202.80 OTH LYMPHOMAS EXTRANODAL SOLID ORGAN U 09/09/2015 BYRON MCCLENDONAH S HEALTH FACILITIES SURVEYOR Ot 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, TYPE II OR UNSPEC TY 09/09/2015 DAVIS MCCLENDON S HEALTH FACILITIES SURVEYOR Ot 585.3 CHRONIC KIDNEY DISEASE, STAGE III (MODER 09/09/2015 PETER CACERES, MIGUEL Ot V72.84 EXAM PRE-OPERATIVE NOS 09/09/2015 MIGUEL GREEN MD Ot V72.84 EXAM PRE-OPERATIVE NOS 09/09/2015 DAVIS MCCLENDON S HEALTH FACILITIES SURVEYOR Ot 202.80 OTH LYMPHOMAS EXTRANODAL SOLID ORGAN U 09/09/2015 DAVIS MCCLENDON S HEALTH FACILITIES SURVEYOR Ot 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, TYPE II OR UNSPEC TY 09/09/2015 DAVIS MCCLENDON S HEALTH FACILITIES SURVEYOR Ot 585.3 CHRONIC KIDNEY DISEASE, STAGE III (MODER 09/09/2015 DAVIS MCCLENDON S HEALTH FACILITIES SURVEYOR Ot 202.80 OTH LYMPHOMAS EXTRANODAL SOLID ORGAN U 09/09/2015 MCCLENDONDAVIS Foster S HEALTH FACILITIES SURVEYOR Ot 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, TYPE II OR UNSPEC TY 09/09/2015 DAVIS MCCLENDON S HEALTH FACILITIES SURVEYOR Ot 585.3 CHRONIC KIDNEY DISEASE, STAGE III (MODER 09/09/2015 DAVIS MCCLENDON HE[facility] FACILITIES SURVEYOR Ot 202.80 OTH LYMPHOMAS EXTRANODAL SOLID ORGAN U 09/09/2015 DAVIS MCCLENDON S HEALTH FACILITIES SURVEYOR Ot 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, TYPE II OR UNSPEC TY 09/09/2015 DAVIS CMCLENDON S HEALTH FACILITIES SURVEYOR Ot 585.3 CHRONIC KIDNEY DISEASE, STAGE III (MODER 09/09/2015 DAVIS MCCLENDON HE[facility] FACILITIES SURVEYOR Ot V58.69 OTH MED,LT,CURRENT USE 09/09/2015 DAVIS MCCLENDON S HEALTH FACILITIES SURVEYOR Ot 202.80 OTH LYMPHOMAS EXTRANODAL SOLID ORGAN U 09/09/2015 DAVIS MCCLENDON S HEALTH FACILITIES SURVEYOR Ot 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, TYPE II OR UNSPEC TY 09/09/2015 DAVIS M[facility] S [facility] FACILITIES SURVEYOR Ot 585.3 CHRONIC KIDNEY DISEASE, STAGE III (MODER 09/09/2015 DAVIS [facility] SURVEYOR Ot V58.69 OTH MED,LT,CURRENT USE 09/09/2015 DAVIS [facility] SURVEYOR Ot 202.80 OTH LYMPHOMAS EXTRANODAL SOLID ORGAN U 09/09/2015 DAVIS [facility] S [facility] FACILITIES SURVEYOR Ot 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, TYPE II OR UNSPEC TY 09/09/2015 DAVIS [facility] SURVEYOR Ot 585.3 CHRONIC KIDNEY DISEASE, STAGE III (MODER 09/09/2015 DAVIS [facility]ACIL[facility] SURVEYOR Ot V58.69 OTH MED,LT,CURRENT USE 09/09/2015 DAVIS [facility]ACIL[facility] SURVEYOR Ot 202.80 OTH LYMPHOMAS EXTRANODAL SOLID ORGAN U 09/09/2015 DAVIS [facility] S [facility] FACILITIES SURVEYOR Ot 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, TYPE II OR UNSPEC TY 09/09/2015 DAVIS [facility] S [facility] FACILITIES SURVEYOR Ot 585.3 CHRONIC KIDNEY DISEASE, STAGE III (MODER 09/09/2015 DAVIS [facility] SURVEYOR Ot V58.69 OTH MED,LT,CURRENT USE 09/09/2015 DAVIS [facility] SURVEYOR Ot 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, UNSPE 09/09/2015 DAV[facility] SURVEYOR Ot E11.9 TYPE 2 DIABETES MELLITUS WITHOUT COMPLIC 09/09/2015 DAV[facility] SURVEYOR Ot N18.3 CHRONIC KIDNEY DISEASE, STAGE 3 (MODERAT 09/09/2015 DAVIS MCCLENDONP Ot Z79.899 OTHER NORMALIZER (CURRENT) DRUG THERAPY 09/09/2015 DIXIE YUNG N Ot 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, UNSPE 09/09/2015 DIXIE YUNG N Ot 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 09/09/2015 DIXIE YUNG N Ot N18.3 CHRONIC KIDNEY DISEASE, STAGE 3 (MODERAT 09/09/2015 DIXIE YUNG N Ot Z79.899 OTHER NORMALIZER (CURRENT) DRUG THERAPY 09/10/2015 LAUREN CLIFTON Ot M25.562 PAIN IN LEFT KNEE 09/22/2015 DIXIE YUNG N Ot 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, UNSPE 09/22/2015 DIXIE YUNG N Ot 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 09/22/2015 DIXIE YUNG N Ot N18.3 CHRONIC KIDNEY DISEASE, STAGE 3 (MODERAT 09/22/2015 DIXIE YUNG N Ot Z79.899 OTHER NORMALIZER (CURRENT) DRUG THERAPY 09/29/2015 LAUREN CLIFTON Ot M25.562 PAIN IN LEFT KNEE 10/16/2015 LAUREN CLIFTON Ot M25.562 PAIN IN LEFT KNEE 12/04/2015 Ot 784.2 SWELLING IN HEAD NECK 12/04/2015 Ot V16.9 FAMILY HX- MALIGNANCY NOS 12/04/2015 Ot 784.2 SWELLING IN HEAD NECK 12/04/2015 Ot 202.80 OTH LYMPHOMAS EXTRANODAL SOLID ORGAN U 12/04/2015 Ot 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, TYPE II OR UNSPEC TY 12/04/2015 DAVIS [facility] SURVEYOR Ot 202.80 OTH LYMPHOMAS EXTRANODAL SOLID ORGAN U 12/04/2015 DAVIS [facility]ACIL[facility] SURVEYOR Ot 202.80 OTH LYMPHOMAS EXTRANODAL SOLID ORGAN U 12/04/2015 DAVIS MCCLENDON S HEALTH FACILITIES SURVEYOR Ot 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, TYPE II OR UNSPEC TY 12/04/2015 DAVIS [facility] FACILITIES SURVEYOR Ot 585.3 CHRONIC KIDNEY DISEASE, STAGE III (MODER 12/04/2015 MCCLENDON, HILAH S HEALTH FACILITIES SURVEYOR Ot 202.80 OTH LYMPHOMAS EXTRANODAL SOLID ORGAN U 12/04/2015 DAVIS MCCLENDON S HEALTH FACILITIES SURVEYOR Ot 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, TYPE II OR UNSPEC TY 12/04/2015 DAVIS MCCLENDON S HEALTH FACILITIES SURVEYOR Ot 585.3 CHRONIC KIDNEY DISEASE, STAGE III (MODER 12/04/2015 DAVIS MCCLENDON S HEALTH FACILITIES SURVEYOR Ot 202.80 OTH LYMPHOMAS EXTRANODAL SOLID ORGAN U 12/04/2015 DAVIS MCCL[facility]ON S HE[facility] FACILITIES SURVEYOR Ot 202.80 OTH LYMPHOMAS EXTRANODAL SOLID ORGAN U 12/04/2015 DAVIS MCCLENDON S HEALTH FACILITIES SURVEYOR Ot 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, TYPE II OR UNSPEC TY 12/04/2015 DAVIS [facility] FACILITIES SURVEYOR Ot 585.3 CHRONIC KIDNEY DISEASE, STAGE III (MODER 12/04/2015 PETER CACERES, MIGUEL Ot V72.84 EXAM PRE-OPERATIVE NOS 12/04/2015 PETER CACERES, MIGUEL Ot V72.84 EXAM PRE-OPERATIVE NOS 12/04/2015 DAVIS MCCLENDON S HEALTH FACILITIES SURVEYOR Ot 202.80 OTH LYMPHOMAS EXTRANODAL SOLID ORGAN U 12/04/2015 DAVIS [facility] FACILITIES SURVEYOR Ot 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, TYPE II OR UNSPEC TY 12/04/2015 DAVIS [facility] FACILITIES SURVEYOR Ot 585.3 CHRONIC KIDNEY DISEASE, STAGE III (MODER 12/04/2015 DAVIS MCCLENDON S HEALTH FACILITIES SURVEYOR Ot 202.80 OTH LYMPHOMAS EXTRANODAL SOLID ORGAN U 12/04/2015 DAVIS MCCLENDON S HEALTH FACILITIES SURVEYOR Ot 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, TYPE II OR UNSPEC TY 12/04/2015 DAVIS [facility] FACILITIES SURVEYOR Ot 585.3 CHRONIC KIDNEY DISEASE, STAGE III (MODER 12/04/2015 DAVIS MCCLENDON S HEALTH FACILITIES SURVEYOR Ot 202.80 OTH LYMPHOMAS EXTRANODAL SOLID ORGAN U 12/04/2015 DAVIS MCCLENDON S HEALTH FACILITIES SURVEYOR Ot 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, TYPE II OR UNSPEC TY 12/04/2015 DAVIS MCCLENDON S HEALTH FACILITIES SURVEYOR Ot 585.3 CHRONIC KIDNEY DISEASE, STAGE III (MODER 12/04/2015 DAVIS M[facility] FACILITIES SURVEYOR Ot V58.69 OTH MED,LT,CURRENT USE 12/04/2015 DAVIS MCCLENDON S HEALTH FACILITIES SURVEYOR Ot 202.80 OTH LYMPHOMAS EXTRANODAL SOLID ORGAN U 12/04/2015 MCCLENDONBYRONRASHI S HEALTH FACILITIES SURVEYOR Ot 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, TYPE II OR UNSPEC TY 12/04/2015 MCCLENDONDAVIS Foster S HEALTH FACILITIES SURVEYOR Ot 585.3 CHRONIC KIDNEY DISEASE, STAGE III (MODER 12/04/2015 DAVIS MCCLENDON S HEALTH FACILITIES SURVEYOR Ot V58.69 OTH MED,LT,CURRENT USE 12/04/2015 MCCLENDONDAVIS Foster S HEALTH FACILITIES SURVEYOR Ot 202.80 OTH LYMPHOMAS EXTRANODAL SOLID ORGAN U 12/04/2015 MCCLENDONBYRONAH S HEALTH FACILITIES SURVEYOR Ot 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, TYPE II OR UNSPEC TY 12/04/2015 MCCLENDONDAVIS Foster S HEALTH FACILITIES SURVEYOR Ot 585.3 CHRONIC KIDNEY DISEASE, STAGE III (MODER 12/04/2015 DAVIS MCCLENDON S HEALTH FACILITIES SURVEYOR Ot V58.69 OTH MED,LT,CURRENT USE 12/04/2015 DAVIS MCCLENDON S HEALTH FACILITIES SURVEYOR Ot 202.80 OTH LYMPHOMAS EXTRANODAL SOLID ORGAN U 12/04/2015 DAVIS MCCLENDON S HEALTH FACILITIES SURVEYOR Ot 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, TYPE II OR UNSPEC TY 12/04/2015 DAVIS MCCLENDON S HEALTH FACILITIES SURVEYOR Ot 585.3 CHRONIC KIDNEY DISEASE, STAGE III (MODER 12/04/2015 DAVIS MCCLENDON S HEALTH FACILITIES SURVEYOR Ot V58.69 OTH MED,LT,CURRENT USE 12/04/2015 DAVIS MCCLENDON S HEALTH FACILITIES SURVEYOR Ot 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, UNSPE 12/04/2015 DAVIS MCCLENDON HEALTH FACILITIES SURVEYOR Ot E11.9 TYPE 2 DIABETES MELLITUS WITHOUT COMPLIC 12/04/2015 DAVIS MCCLENDON S HEALTH FACILITIES SURVEYOR Ot N18.3 CHRONIC KIDNEY DISEASE, STAGE 3 (MODERAT 12/04/2015 DAVIS MCCLENDON S HEALTH FACILITIES SURVEYOR Ot Z79.899 OTHER NORMALIZER (CURRENT) DRUG THERAPY 12/04/2015 LAUREN CLIFTON Ot M25.562 PAIN IN LEFT KNEE 12/04/2015 DIXIE YUNG Ot 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, UNSPE 12/04/2015 DIXIE YUNG Ot 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 12/04/2015 DIXIE YUNG Ot N18.3 CHRONIC KIDNEY DISEASE, STAGE 3 (MODERAT 12/04/2015 DIXIE YUNG Ot Z79.899 OTHER JAIL (CURRENT) DRUG THERAPY 01/18/2016 LORENZO CALDWELL, LAUREN L Ot M25.562 PAIN IN LEFT KNEE 09/05/2016 Ot 784.2 SWELLING IN HEAD NECK 09/05/2016 Ot V16.9 FAMILY HX- MALIGNANCY NOS 09/05/2016 Ot 784.2 SWELLING IN HEAD NECK 09/05/2016 Ot 202.80 OTH LYMPHOMAS EXTRANODAL SOLID ORGAN U 09/05/2016 Ot 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, TYPE II OR UNSPEC TY 09/05/2016 MCCLENDON, HILAH S HEALTH FACILITIES SURVEYOR Ot 202.80 OTH LYMPHOMAS EXTRANODAL SOLID ORGAN U 09/05/2016 MCCLENDON, HILAH S HEALTH FACILITIES SURVEYOR Ot 202.80 OTH LYMPHOMAS EXTRANODAL SOLID ORGAN U 09/05/2016 MCCLENDON, HILAH S HEALTH FACILITIES SURVEYOR Ot 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, TYPE II OR UNSPEC TY 09/05/2016 MCCLENDON, HILAH S HEALTH FACILITIES SURVEYOR Ot 585.3 CHRONIC KIDNEY DISEASE, STAGE III (MODER 09/05/2016 MCCLENDON, HILAH S HEALTH FACILITIES SURVEYOR Ot 202.80 OTH LYMPHOMAS EXTRANODAL SOLID ORGAN U 09/05/2016 MCCLENDON, HILAH S HEALTH FACILITIES SURVEYOR Ot 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, TYPE II OR UNSPEC TY 09/05/2016 MCCLENDON, HILAH S HEALTH FACILITIES SURVEYOR Ot 585.3 CHRONIC KIDNEY DISEASE, STAGE III (MODER 09/05/2016 MCCLENDON, HILAH S HEALTH FACILITIES SURVEYOR Ot 202.80 OTH LYMPHOMAS EXTRANODAL SOLID ORGAN U 09/05/2016 MCCLENDON, HILAH S HEALTH FACILITIES SURVEYOR Ot 202.80 OTH LYMPHOMAS EXTRANODAL SOLID ORGAN U 09/05/2016 MCCLENDON, HILAH S HEALTH FACILITIES SURVEYOR Ot 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, TYPE II OR UNSPEC TY 09/05/2016 MCCLENDON, HILAH S HEALTH FACILITIES SURVEYOR Ot 585.3 CHRONIC KIDNEY DISEASE, STAGE III (MODER 09/05/2016 MIGUEL GREEN MD Ot V72.84 EXAM PRE-OPERATIVE NOS 09/05/2016 MIGUEL GREEN MD Ot V72.84 EXAM PRE-OPERATIVE NOS 09/05/2016 MCCLENDONBYRONAH S HEALTH FACILITIES SURVEYOR Ot 202.80 OTH LYMPHOMAS EXTRANODAL SOLID ORGAN U 09/05/2016 DAVIS MCCLENDON S HEALTH FACILITIES SURVEYOR Ot 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, TYPE II OR UNSPEC TY 09/05/2016 MCCLENDONDAVIS Foster S HEALTH FACILITIES SURVEYOR Ot 585.3 CHRONIC KIDNEY DISEASE, STAGE III (MODER 09/05/2016 MCCLENDONDAVIS Foster S HEALTH FACILITIES SURVEYOR Ot 202.80 OTH LYMPHOMAS EXTRANODAL SOLID ORGAN U 09/05/2016 MCCLENDONBYRONAH S HEALTH FACILITIES SURVEYOR Ot 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, TYPE II OR UNSPEC TY 09/05/2016 MCCLENDONDAVIS Foster S HEALTH FACILITIES SURVEYOR Ot 585.3 CHRONIC KIDNEY DISEASE, STAGE III (MODER 09/05/2016 MCCLENDONDAVIS S HEALTH FACILITIES SURVEYOR Ot 202.80 OTH LYMPHOMAS EXTRANODAL SOLID ORGAN U 09/05/2016 MCCLENDONBYRONAH S HEALTH FACILITIES SURVEYOR Ot 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, TYPE II OR UNSPEC TY 09/05/2016 DAVIS MCCLENDON S HEALTH FACILITIES SURVEYOR Ot 585.3 CHRONIC KIDNEY DISEASE, STAGE III (MODER 09/05/2016 DAVIS MCCLENDON S HEALTH FACILITIES SURVEYOR Ot V58.69 OTH MED,LT,CURRENT USE 09/05/2016 DAVIS MCCLENDON S HEALTH FACILITIES SURVEYOR Ot 202.80 OTH LYMPHOMAS EXTRANODAL SOLID ORGAN U 09/05/2016 DAVIS MCCLENDON S HEALTH FACILITIES SURVEYOR Ot 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, TYPE II OR UNSPEC TY 09/05/2016 DAVIS MCCLENDON S HEALTH FACILITIES SURVEYOR Ot 585.3 CHRONIC KIDNEY DISEASE, STAGE III (MODER 09/05/2016 DAVIS MCCLENDON S HEALTH FACILITIES SURVEYOR Ot V58.69 OTH MED,LT,CURRENT USE 09/05/2016 MCCLENDONDAVIS S HEALTH FACILITIES SURVEYOR Ot 202.80 OTH LYMPHOMAS EXTRANODAL SOLID ORGAN U 09/05/2016 MCCLENDONBYRONAH S HEALTH FACILITIES SURVEYOR Ot 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, TYPE II OR UNSPEC TY 09/05/2016 MCCLENDONDAVIS S HEALTH FACILITIES SURVEYOR Ot 585.3 CHRONIC KIDNEY DISEASE, STAGE III (MODER 09/05/2016 MCCLENDONDAVIS S HEALTH FACILITIES SURVEYOR Ot V58.69 OTH MED,LT,CURRENT USE 09/05/2016 MCCLENDON, HILAH S HEALTH FACILITIES SURVEYOR Ot 202.80 OTH LYMPHOMAS EXTRANODAL SOLID ORGAN U 09/05/2016 MCCLENDONBYRONAH S HEALTH FACILITIES SURVEYOR Ot 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, TYPE II OR UNSPEC TY 09/05/2016 MCCLENDONDAVIS Foster HEALTH FACILITIES SURVEYOR Ot 585.3 CHRONIC KIDNEY DISEASE, STAGE III (MODER 09/05/2016 DAVIS MCCLENDON HEALTH FACILITIES SURVEYOR Ot V58.69 OTH MED,LT,CURRENT USE 09/05/2016 DAVIS MCCLENDON HEALTH FACILITIES SURVEYOR Ot 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, UNSPE 09/05/2016 HAKAN BYRONRASHI Foster HEALTH FACILITIES SURVEYOR Ot E11.9 TYPE 2 DIABETES MELLITUS WITHOUT COMPLIC 09/05/2016 MCCLENDON, BYRONRASHI Foster HEALTH FACILITIES SURVEYOR Ot N18.3 CHRONIC KIDNEY DISEASE, STAGE 3 (MODERAT 09/05/2016 HAKAN BYRONRASHI Foster HEALTH FACILITIES SURVEYOR Ot Z79.899 OTHER NORMALIZER (CURRENT) DRUG THERAPY 09/05/2016 LAUREN CLIFTON Ot M25.562 PAIN IN LEFT KNEE 09/05/2016 DIXIE YUNG Ot 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, UNSPE 09/05/2016 DIXIE YUNG Ot 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 09/05/2016 DIXIE YUNG Ot N18.3 CHRONIC KIDNEY DISEASE, STAGE 3 (MODERAT 09/05/2016 DIXIE YUNG Ot Z79.899 OTHER JAIL (CURRENT) DRUG THERAPY 09/17/2016 SHAYLA CARPIO Ot E78.5 HYPERLIPIDEMIA, UNSPECIFIED 09/17/2016 SHAYLA CARPIO Ot E87.6 HYPOKALEMIA 09/17/2016 SHAYLA CARPIO Ot I10 ESSENTIAL (PRIMARY) HYPERTENSION 09/17/2016 SHAYLA CARPIO Ot I25.10 ATHSCL HEART DISEASE OF [place] CORONARY 09/17/2016 SHAYLA CARPIO Ot J44.9 CHRONIC OBSTRUCTIVE PULMONARY DISEASE, U 09/17/2016 SHAYLA CARPIO Ot R00.2 PALPITATIONS 09/17/2016 SHAYLA CARPIO Ot Z79.899 OTHER JAIL (CURRENT) DRUG THERAPY 09/19/2016 SHAYLA CARPIO Ot E78.5 HYPERLIPIDEMIA, UNSPECIFIED 09/19/2016 SHAYLA CARPIO Ot E87.6 HYPOKALEMIA 09/19/2016 JOSHUA PA, SHAYLA L Ot I10 ESSENTIAL (PRIMARY) HYPERTENSION 09/19/2016 SHAYLA CARPIO Ot I25.10 ATHSCL HEART DISEASE OF [place] CORONARY 09/19/2016 SHAYLA CARPIO Ot J44.9 CHRONIC OBSTRUCTIVE PULMONARY DISEASE, U 09/19/2016 SHAYLA CARPIO Ot R00.2 PALPITATIONS 09/19/2016 SHAYLA CARPIO Ot Z79.899 OTHER JAIL (CURRENT) DRUG THERAPY 09/23/2016 SHAYLA CARPIO Ot E78.5 HYPERLIPIDEMIA, UNSPECIFIED 09/23/2016 SHAYLA CARPIO Ot E87.6 HYPOKALEMIA 09/23/2016 SHAYLA CARPIO Ot I10 ESSENTIAL (PRIMARY) HYPERTENSION 09/23/2016 SHAYLA CARPIO Ot I25.10 ATHSCL HEART DISEASE OF [place] CORONARY 09/23/2016 SHAYLA CARPIO Ot J44.9 CHRONIC OBSTRUCTIVE PULMONARY DISEASE, U 09/23/2016 SHAYLA CARPIO Ot R00.2 PALPITATIONS 09/23/2016 SHAYLA CARPIO Ot Z79.899 OTHER NORMALIZER (CURRENT) DRUG THERAPY 10/07/2016 WOO JOHNSTON MD R Ot M48.02 SPINAL STENOSIS, CERVICAL REGION 10/07/2016 WOO JOHNSTON MD R Ot R20.2 PARESTHESIA OF SKIN 10/07/2016 WOO JOHNSTON MD R Ot R29.898 OTH SYMPTOMS AND SIGNS INVOLVING THE MUS 10/07/2016 WOO JOHNSTON MD R Ot M48.02 SPINAL STENOSIS, CERVICAL REGION 10/07/2016 WOO JOHNSTON MD R Ot R20.2 PARESTHESIA OF SKIN 10/07/2016 WOO JOHNSTON MD R Ot R29.898 OTH SYMPTOMS AND SIGNS INVOLVING THE MUS 10/07/2016 WOO JOHNSTON MD R Ot M48.02 SPINAL STENOSIS, CERVICAL REGION 10/07/2016 WOO JOHNSTON MD R Ot R20.2 PARESTHESIA OF SKIN 10/07/2016 WOO JOHNSTON MD R Ot R29.898 OTH SYMPTOMS AND SIGNS INVOLVING THE MUS 10/19/2016 Ot R29.898 OTH SYMPTOMS AND SIGNS INVOLVING THE MUS 10/27/2016 WOO JOHNSTON MD R Ot M48.02 SPINAL STENOSIS, CERVICAL REGION 10/27/2016 WOO JOHNSTON MD R Ot R20.2 PARESTHESIA OF SKIN 10/27/2016 WOO JOHNSTON MD R Ot R29.898 OTH SYMPTOMS AND SIGNS INVOLVING THE MUS 11/03/2016 WOO JOHNSTON MD R Ot R20.0 ANESTHESIA OF SKIN 11/03/2016 WOO JOHNSTON MD R Ot R20.2 PARESTHESIA OF SKIN 11/30/2016 WOO JOHNSTON MD Ot M48.02 SPINAL STENOSIS, CERVICAL REGION 11/30/2016 WOO JOHNSTON MD R Ot R20.2 PARESTHESIA OF SKIN 11/30/2016 WOO JOHNSTON MD Ot R29.898 OTH SYMPTOMS AND SIGNS INVOLVING THE MUS 11/30/2016 WOO JOHNSTON MD R Ot R20.0 ANESTHESIA OF SKIN 11/30/2016 WOO JOHNSTON MD R Ot R20.2 PARESTHESIA OF SKIN 11/30/2016 Ot 784.2 SWELLING IN HEAD NECK 11/30/2016 Ot V16.9 FAMILY HX- MALIGNANCY NOS 11/30/2016 Ot 784.2 SWELLING IN HEAD NECK 11/30/2016 Ot 202.80 OTH LYMPHOMAS EXTRANODAL SOLID ORGAN U 11/30/2016 Ot 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, TYPE II OR UNSPEC TY 11/30/2016 MCCLENDONDAVIS Foster S HEALTH FACILITIES SURVEYOR Ot 202.80 OTH LYMPHOMAS EXTRANODAL SOLID ORGAN U 11/30/2016 MCCLENDONDAVIS Foster S HEALTH FACILITIES SURVEYOR Ot 202.80 OTH LYMPHOMAS EXTRANODAL SOLID ORGAN U 11/30/2016 MCCLENDONDAVIS Foster S HEALTH FACILITIES SURVEYOR Ot 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, TYPE II OR UNSPEC TY 11/30/2016 MCCLENDONDAVIS Foster S HEALTH FACILITIES SURVEYOR Ot 585.3 CHRONIC KIDNEY DISEASE, STAGE III (MODER 11/30/2016 MCCLENDONDAVIS Foster S HEALTH FACILITIES SURVEYOR Ot 202.80 OTH LYMPHOMAS EXTRANODAL SOLID ORGAN U 11/30/2016 MCCLENDONDAVIS Foster S HEALTH FACILITIES SURVEYOR Ot 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, TYPE II OR UNSPEC TY 11/30/2016 DAVIS MCCLENDON S HEALTH FACILITIES SURVEYOR Ot 585.3 CHRONIC KIDNEY DISEASE, STAGE III (MODER 11/30/2016 DAVIS MCCLENDON S HEALTH FACILITIES SURVEYOR Ot 202.80 OTH LYMPHOMAS EXTRANODAL SOLID ORGAN U 11/30/2016 DAVIS MCCLENDON HEALTH FACILITIES SURVEYOR Ot 202.80 OTH LYMPHOMAS EXTRANODAL SOLID ORGAN U 11/30/2016 DAVIS MCCLENDON HEALTH FACILITIES SURVEYOR Ot 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, TYPE II OR UNSPEC TY 11/30/2016 DAVIS MCCLENDON HEALTH FACILITIES SURVEYOR Ot 585.3 CHRONIC KIDNEY DISEASE, STAGE III (MODER 11/30/2016 PETER CACERES, MIGUEL Ot V72.84 EXAM PRE-OPERATIVE NOS 11/30/2016 PETER CACERES, MIGUEL Ot V72.84 EXAM PRE-OPERATIVE NOS 11/30/2016 DAVIS MCCELNDON HEALTH FACILITIES SURVEYOR Ot 202.80 OTH LYMPHOMAS EXTRANODAL SOLID ORGAN U 11/30/2016 DAVIS MCCLENDON HEALTH FACILITIES SURVEYOR Ot 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, TYPE II OR UNSPEC TY 11/30/2016 DAVIS MCCLENDON HEALTH FACILITIES SURVEYOR Ot 585.3 CHRONIC KIDNEY DISEASE, STAGE III (MODER 11/30/2016 DAVIS MCCLENDON HEALTH FACILITIES SURVEYOR Ot 202.80 OTH LYMPHOMAS EXTRANODAL SOLID ORGAN U 11/30/2016 DAVIS MCCLENDON HEALTH FACILITIES SURVEYOR Ot 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, TYPE II OR UNSPEC TY 11/30/2016 DAVIS MCCLENDON HEALTH FACILITIES SURVEYOR Ot 585.3 CHRONIC KIDNEY DISEASE, STAGE III (MODER 11/30/2016 DAVIS MCCLENDON HEALTH FACILITIES SURVEYOR Ot 202.80 OTH LYMPHOMAS EXTRANODAL SOLID ORGAN U 11/30/2016 DAVIS MCCLENDON HEALTH FACILITIES SURVEYOR Ot 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, TYPE II OR UNSPEC TY 11/30/2016 DAVIS MCCLENDON HEALTH FACILITIES SURVEYOR Ot 585.3 CHRONIC KIDNEY DISEASE, STAGE III (MODER 11/30/2016 DAVIS MCCLENDONP Ot V58.69 OTH MED,LT,CURRENT USE 11/30/2016 DAVIS MCCLENDON HEALTH FACILITIES SURVEYOR Ot 202.80 OTH LYMPHOMAS EXTRANODAL SOLID ORGAN U 11/30/2016 DAVIS MCCLENDON S HEALTH FACILITIES SURVEYOR Ot 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, TYPE II OR UNSPEC TY 11/30/2016 DAVIS MCCLENDON S HEALTH FACILITIES SURVEYOR Ot 585.3 CHRONIC KIDNEY DISEASE, STAGE III (MODER 11/30/2016 MCCLENDON, HILAH S HEALTH FACILITIES SURVEYOR Ot V58.69 OTH MED,LT,CURRENT USE 11/30/2016 MCCLENDONDAVIS Foster S HEALTH FACILITIES SURVEYOR Ot 202.80 OTH LYMPHOMAS EXTRANODAL SOLID ORGAN U 11/30/2016 MCCLENDONDAVIS Foster S HEALTH FACILITIES SURVEYOR Ot 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, TYPE II OR UNSPEC TY 11/30/2016 MCCLENDONDAVIS Foster S HEALTH FACILITIES SURVEYOR Ot 585.3 CHRONIC KIDNEY DISEASE, STAGE III (MODER 11/30/2016 MCCLENDONDAVIS Foster S HEALTH FACILITIES SURVEYOR Ot V58.69 OTH MED,LT,CURRENT USE 11/30/2016 MCCLENDONDAVIS Foster S HEALTH FACILITIES SURVEYOR Ot 202.80 OTH LYMPHOMAS EXTRANODAL SOLID ORGAN U 11/30/2016 MCCLENDONDAVIS S HEALTH FACILITIES SURVEYOR Ot 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, TYPE II OR UNSPEC TY 11/30/2016 MCCLENDONDAVIS Foster S HEALTH FACILITIES SURVEYOR Ot 585.3 CHRONIC KIDNEY DISEASE, STAGE III (MODER 11/30/2016 MCCLENDONDAVIS Foster S HEALTH FACILITIES SURVEYOR Ot V58.69 OTH MED,LT,CURRENT USE 11/30/2016 MCCLENDONDAVIS Foster S HEALTH FACILITIES SURVEYOR Ot 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, UNSPE 11/30/2016 DAVIS MCCLENDON S HEALTH FACILITIES SURVEYOR Ot E11.9 TYPE 2 DIABETES MELLITUS WITHOUT COMPLIC 11/30/2016 DAVIS MCCLENDON S HEALTH FACILITIES SURVEYOR Ot N18.3 CHRONIC KIDNEY DISEASE, STAGE 3 (MODERAT 11/30/2016 MCCLENDON DAVIS S HEALTH FACILITIES SURVEYOR Ot Z79.899 OTHER JAIL (CURRENT) DRUG THERAPY 11/30/2016 LAUREN CLIFTON Ot M25.562 PAIN IN LEFT KNEE 11/30/2016 DIXIE YUNG Ot 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, UNSPE 11/30/2016 DIXIE YUNG Ot 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 11/30/2016 DIXIE YUNG Ot N18.3 CHRONIC KIDNEY DISEASE, STAGE 3 (MODERAT 11/30/2016 DIXIE YUNG Ot Z79.899 OTHER NORMALIZER (CURRENT) DRUG THERAPY 11/30/2016 VICKIE CACERES, WOO R Ot M48.02 SPINAL STENOSIS, CERVICAL REGION 11/30/2016 VICKIE CACERES, WOO R Ot R20.2 PARESTHESIA OF SKIN 11/30/2016 WOO JOHNSTON MD R Ot R29.898 OTH SYMPTOMS AND SIGNS INVOLVING THE MUS 11/30/2016 Ot R29.898 OTH SYMPTOMS AND SIGNS INVOLVING THE MUS 11/30/2016 WOO JOHNSTON MD R Ot R20.0 ANESTHESIA OF SKIN 11/30/2016 WOO JOHNSTON MD R Ot R20.2 PARESTHESIA OF SKIN 12/02/2016 WOO JOHNSTON MD R Ot R20.0 ANESTHESIA OF SKIN 12/02/2016 WOO JOHNSTON MD R Ot R20.2 PARESTHESIA OF SKIN 01/04/2017 WOO JOHNSTON MD R Ot M48.02 SPINAL STENOSIS, CERVICAL REGION 01/04/2017 WOO JOHNSTON MD R Ot R20.2 PARESTHESIA OF SKIN 01/04/2017 WOO JOHNSTON MD R Ot R29.898 OTH SYMPTOMS AND SIGNS INVOLVING THE MUS 02/01/2017 WOO JOHNSTON MD R Ot R20.0 ANESTHESIA OF SKIN 02/01/2017 WOO JOHNSTON MD R Ot R20.2 PARESTHESIA OF SKIN 02/06/2017 WOO JOHNSTON MD R Ot R20.0 ANESTHESIA OF SKIN 02/06/2017 WOO JOHNSTON MD R Ot R20.2 PARESTHESIA OF SKIN Procedures There is no data. Results Test Result Range Complete blood count (CBC) with automated white blood cell (WBC) differential - 09/17/16 12:05 Blood leukocytes automated count (number/volume) 7.3 10*3/uL 4.3-11.0 Blood erythrocytes automated count (number/volume) 4.56 10*6/uL 4.35-5.85 Venous blood hemoglobin measurement (mass/volume) 14.0 g/dL 13.3-17.7 Blood hematocrit (volume fraction) 43 % 40-54 Automated erythrocyte mean corpuscular volume 93 [foz_us] 80-99 Automated erythrocyte mean corpuscular hemoglobin (mass per erythrocyte) 31 pg 25-34 Automated erythrocyte mean corpuscular hemoglobin concentration measurement ( mass/volume) 33 g/dL 32-36 Automated erythrocyte distribution width ratio 13.0 % 10.0-14.5 Automated blood platelet count (count/volume) 248 10*3/uL 130-400 Automated blood platelet mean volume measurement 10.3 [foz_us] 7.4-10.4 Automated blood neutrophils/100 leukocytes 66 % 42-75 Automated blood lymphocytes/100 leukocytes 19 % 12-44 Blood monocytes/100 leukocytes 13 % 0-12 Automated blood eosinophils/100 leukocytes 2 % 0-10 Automated blood basophils/100 leukocytes 0 % 0-10 Blood neutrophils automated count (number/volume) 4.8 10*3 1.8-7.8 Blood lymphocytes automated count (number/volume) 1.4 10*3 1.0-4.0 Blood monocytes automated count (number/volume) 1.0 10*3 0.0-1.0 Automated eosinophil count 0.1 10*3/uL 0.0-0.3 Automated blood basophil count (count/volume) 0.0 10*3/uL 0.0-0.1 Comprehensive metabolic panel - 09/17/16 12:05 Serum or plasma sodium measurement (moles/volume) 142 mmol/L 135-145 Serum or plasma potassium measurement (moles/volume) 4.5 mmol/L 3.6-5.0 Serum or plasma chloride measurement (moles/volume) 106 mmol/L 98-107 Carbon dioxide 26 mmol/L 21-32 Serum or plasma anion gap determination (moles/volume) 10 mmol/L 5-14 Serum or plasma urea nitrogen measurement (mass/volume) 18 mg/dL 7-18 Serum or plasma creatinine measurement (mass/volume) 1.13 mg/dL 0.60-1.30 Serum or plasma urea nitrogen/creatinine mass ratio 16 NRG Serum or plasma creatinine measurement with calculation of estimated glomerular filtration rate > NRG Serum or plasma glucose measurement (mass/volume) 102 mg/dL 70-105 Serum or plasma calcium measurement (mass/volume) 9.2 mg/dL 8.5-10.1 Serum or plasma total bilirubin measurement (mass/volume) 0.5 mg/dL 0.1-1.0 Serum or plasma alkaline phosphatase measurement (enzymatic activity/volume) 66 U/L 40-136 Serum or plasma aspartate aminotransferase measurement (enzymatic activity/ volume) 18 U/L 5-34 Serum or plasma alanine aminotransferase measurement (enzymatic activity/volume ) 18 U/L 0-55 Serum or plasma protein measurement (mass/volume) 6.2 g/dL 6.4-8.2 Serum or plasma albumin measurement (mass/volume) 3.8 g/dL 3.2-4.5 Magnesium - 09/17/16 12:05 Magnesium 2.3 mg/dL 1.8-2.4 Serum or plasma creatine kinase measurement (enzymatic activity/volume) - 09/17 12:05 Serum or plasma creatine kinase measurement (enzymatic activity/volume) 102 U/L 30-200 PT panel in platelet poor plasma by coagulation assay - 09/17/16 12:05 Prothrombin time (PT) in platelet poor plasma by coagulation assay 13.0 s 12.2-14.7 INR in platelet poor plasma or blood by coagulation assay 1.0 0.8-1.4 Activated partial thromboplastin time (aPTT) in platelet poor plasma bycoagulation assay - 09/17/16 12:05 Activated partial thromboplastin time (aPTT) in platelet poor plasma bycoagulation assay 28 s 24-35 Serum or plasma creatine kinase MB measurement (enzymatic activity/volume) - 12:05 Serum or plasma creatine kinase MB measurement (enzymatic activity/volume) 1.6 ng/mL <6.6 Serum or plasma troponin i.cardiac measurement (mass/volume) - 09/17/16 12:05 Serum or plasma troponin i.cardiac measurement (mass/volume) < ng/ mL <0.30 Myoglobin, serum - 09/17/16 12:05 Myoglobin, serum 52.3 ng/mL 10.0-92.0 Fibrin D-dimer FEU measurement in platelet poor plasma (mass/volume) - 12:05 Fibrin D-dimer FEU measurement in platelet poor plasma (mass/volume) 0.90 ug/mL 0.00-0.49 Complete urinalysis with reflex to culture - 09/17/16 13:13 Urine color determination YELLOW NRG Urine clarity determination SLIGHTLY CLOUDY NRG Urine pH measurement by test strip 5 5-9 Specific gravity of urine by test strip 1.020 1.016- 1.022 Urine protein assay by test strip, semi-quantitative 3+ NEGATIVE Urine glucose detection by automated test strip NEGATIVE NEGATIVE Erythrocytes detection in urine sediment by light microscopy 1+ NEGATIVE Urine ketones detection by automated test strip 1+ NEGATIVE Urine nitrite detection by test strip NEGATIVE NEGATIVE Urine total bilirubin detection by test strip NEGATIVE NEGATIVE Urine urobilinogen measurement by automated test strip (mass/volume) NORMAL NORMAL Urine leukocyte esterase detection by dipstick 1+ NEGATIVE Automated urine sediment erythrocyte count by microscopy (number/high power field) RARE NRG Automated urine sediment leukocyte count by microscopy (number/high power field ) RARE NRG Bacteria detection in urine sediment by light microscopy NEGATIVE NRG Squamous epithelial cells detection in urine sediment by light microscopy NONE NRG Crystals detection in urine sediment by light microscopy NONE NRG Casts detection in urine sediment by light microscopy NONE NRG Mucus detection in urine sediment by light microscopy SMALL NRG Complete urinalysis with reflex to culture NO NRG Complete blood count (CBC) with automated white blood cell (WBC) differential - 09/26/16 10:08 Blood leukocytes automated count (number/volume) 5.1 10*3/uL 4.3-11.0 Blood erythrocytes automated count (number/volume) 5.00 10*6/uL 4.35-5.85 Venous blood hemoglobin measurement (mass/volume) 15.2 g/dL 13.3-17.7 Blood hematocrit (volume fraction) 46 % 40-54 Automated erythrocyte mean corpuscular volume 92 [foz_us] 80-99 Automated erythrocyte mean corpuscular hemoglobin (mass per erythrocyte) 30 pg 25-34 Automated erythrocyte mean corpuscular hemoglobin concentration measurement ( mass/volume) 33 g/dL 32-36 Automated erythrocyte distribution width ratio 12.8 % 10.0-14.5 Automated blood platelet count (count/volume) 259 10*3/uL 130-400 Automated blood platelet mean volume measurement 10.1 [foz_us] 7.4-10.4 Automated blood neutrophils/100 leukocytes 55 % 42-75 Automated blood lymphocytes/100 leukocytes 29 % 12-44 Blood monocytes/100 leukocytes 13 % 0-12 Automated blood eosinophils/100 leukocytes 3 % 0-10 Automated blood basophils/100 leukocytes 0 % 0-10 Blood neutrophils automated count (number/volume) 2.8 10*3 1.8-7.8 Blood lymphocytes automated count (number/volume) 1.5 10*3 1.0-4.0 Blood monocytes automated count (number/volume) 0.6 10*3 0.0-1.0 Automated eosinophil count 0.2 10*3/uL 0.0-0.3 Automated blood basophil count (count/volume) 0.0 10*3/uL 0.0-0.1 Comprehensive metabolic panel - 09/26/16 10:08 Serum or plasma sodium measurement (moles/volume) 140 mmol/L 135-145 Serum or plasma potassium measurement (moles/volume) 4.5 mmol/L 3.6-5.0 Serum or plasma chloride measurement (moles/volume) 105 mmol/L 98-107 Carbon dioxide 25 mmol/L 21-32 Serum or plasma anion gap determination (moles/volume) 10 mmol/L 5-14 Serum or plasma urea nitrogen measurement (mass/volume) 15 mg/dL 7-18 Serum or plasma creatinine measurement (mass/volume) 0.96 mg/dL 0.60-1.30 Serum or plasma urea nitrogen/creatinine mass ratio 16 NRG Serum or plasma creatinine measurement with calculation of estimated glomerular filtration rate > NRG Serum or plasma glucose measurement (mass/volume) 103 mg/dL 70-105 Serum or plasma calcium measurement (mass/volume) 9.5 mg/dL 8.5-10.1 Serum or plasma total bilirubin measurement (mass/volume) 0.4 mg/dL 0.1-1.0 Serum or plasma alkaline phosphatase measurement (enzymatic activity/volume) 77 U/L 40-136 Serum or plasma aspartate aminotransferase measurement (enzymatic activity/ volume) 20 U/L 5-34 Serum or plasma alanine aminotransferase measurement (enzymatic activity/volume ) 21 U/L 0-55 Serum or plasma protein measurement (mass/volume) 6.7 g/dL 6.4-8.2 Serum or plasma albumin measurement (mass/volume) 4.2 g/dL 3.2-4.5 Serum or plasma folate measurement (mass/volume) - 09/26/16 10:08 Serum or plasma folate measurement (mass/volume) > % 1.5- 24.0 Cyanocobalamin measurement - 09/26/16 10:08 Vitamin B12 332 pg/mL 200-1000 Complete blood count (CBC) with automated white blood cell (WBC) differential - 10/06/16 08:07 Blood leukocytes automated count (number/volume) 6.9 10*3/uL 4.3-11.0 Blood erythrocytes automated count (number/volume) 4.88 10*6/uL 4.35-5.85 Venous blood hemoglobin measurement (mass/volume) 14.8 g/dL 13.3-17.7 Blood hematocrit (volume fraction) 45 % 40-54 Automated erythrocyte mean corpuscular volume 91 [foz_us] 80-99 Automated erythrocyte mean corpuscular hemoglobin (mass per erythrocyte) 30 pg 25-34 Automated erythrocyte mean corpuscular hemoglobin concentration measurement ( mass/volume) 33 g/dL 32-36 Automated erythrocyte distribution width ratio 13.0 % 10.0-14.5 Automated blood platelet count (count/volume) 171 10*3/uL 130-400 Automated blood platelet mean volume measurement 10.3 [foz_us] 7.4-10.4 Automated blood neutrophils/100 leukocytes 56 % 42-75 Automated blood lymphocytes/100 leukocytes 31 % 12-44 Blood monocytes/100 leukocytes 9 % 0-12 Automated blood eosinophils/100 leukocytes 4 % 0-10 Automated blood basophils/100 leukocytes 0 % 0-10 Blood neutrophils automated count (number/volume) 3.8 10*3 1.8-7.8 Blood lymphocytes automated count (number/volume) 2.1 10*3 1.0-4.0 Blood monocytes automated count (number/volume) 0.6 10*3 0.0-1.0 Automated eosinophil count 0.2 10*3/uL 0.0-0.3 Automated blood basophil count (count/volume) 0.0 10*3/uL 0.0-0.1 Comprehensive metabolic panel - 10/06/16 08:07 Serum or plasma sodium measurement (moles/volume) 141 mmol/L 135-145 Serum or plasma potassium measurement (moles/volume) 4.2 mmol/L 3.6-5.0 Serum or plasma chloride measurement (moles/volume) 107 mmol/L 98-107 Carbon dioxide 23 mmol/L 21-32 Serum or plasma anion gap determination (moles/volume) 11 mmol/L 5-14 Serum or plasma urea nitrogen measurement (mass/volume) 20 mg/dL 7-18 Serum or plasma creatinine measurement (mass/volume) 0.93 mg/dL 0.60-1.30 Serum or plasma urea nitrogen/creatinine mass ratio 22 NRG Serum or plasma creatinine measurement with calculation of estimated glomerular filtration rate > NRG Serum or plasma glucose measurement (mass/volume) 105 mg/dL 70-105 Serum or plasma calcium measurement (mass/volume) 9.4 mg/dL 8.5-10.1 Serum or plasma total bilirubin measurement (mass/volume) 0.5 mg/dL 0.1-1.0 Serum or plasma alkaline phosphatase measurement (enzymatic activity/volume) 67 U/L 40-136 Serum or plasma aspartate aminotransferase measurement (enzymatic activity/ volume) 24 U/L 5-34 Serum or plasma alanine aminotransferase measurement (enzymatic activity/volume ) 24 U/L 0-55 Serum or plasma protein measurement (mass/volume) 6.6 g/dL 6.4-8.2 Serum or plasma albumin measurement (mass/volume) 4.1 g/dL 3.2-4.5 Serum or plasma folate measurement (mass/volume) - 10/06/16 08:07 Serum or plasma folate measurement (mass/volume) > % 1.5- 24.0 Cyanocobalamin measurement - 10/06/16 08:07 Vitamin B12 716 pg/mL 200-1000 Encounters ACCT No. Visit Date/Time Discharge Status Pt. Type Provider Facility Loc./Unit Complaint [id number] 02/02/2017 00:27:00 02/02/2017 23:59:59 CLS Preadmit WOO JOHNSTON MD [facility] REHAB NUMBNESS AND TINGLING IN BOTH HANDS [id number] 01/19/2017 08:51:00 02/01/2017 00:01:00 DIS Outpatient WOO JOHNSTON MD [facility] REHAB NUMBNESS AND TINGLING IN BOTH HANDS [id number] 10/06/2016 07:57:00 10/06/2016 23:59:59 CLS Outpatient WOO JOHNSTON MD [facility] RAD [id number] 09/17/2016 11:29:00 09/17/2016 14:41:00 DIS Emergency SHAYLA CARPIO [facility] ER HEART PROBLEMS [id number] 09/23/2015 00:08:00 09/23/2015 23:59:59 CLS Preadmit DIXIE YUNG [facility] ONC [id number] 06/24/2015 08:53:00 09/22/2015 00:01:00 DIS Outpatient DIXIE YUNG [facility] ONC [id number] 09/21/2015 13:17:00 09/21/2015 23:59:59 CLS Preadmit [facility] ONC [id number] 09/09/2015 10:04:00 09/09/2015 23:59:59 CLS Outpatient LAUREN CLIFTON [facility] RAD TRAUMATIC KNEE PAIN W /POSITIVE MCMURRAYS [id number] 03/25/2015 09:17:00 06/23/2015 00:01:00 DIS Outpatient DIXIE YUNG [facility] ONC [id number] 03/25/2015 09:12:00 03/25/2015 23:59:59 CLS Outpatient [facility]IS [facility] ONC [id number] 12/31/2014 09:04:00 02/04/2015 00:01:00 DIS Outpatient DIXIE YUNG [facility] ONC [id number] 10/08/2014 08:48:00 11/11/2014 00:01:00 DIS Outpatient DIXIE YUNG [facility] ONC [id number] 10/08/2014 08:50:00 10/08/2014 23:59:59 CLS Outpatient [facility] ONC [id number] 08/13/2014 08:48:00 08/13/2014 23:59:59 CLS Outpatient DAVSI [facility] ONC [id number] 06/18/2014 09:02:00 06/18/2014 23:59:59 CLS Outpatient DIXIE YUNG [facility] ONC [id number] 04/16/2014 08:27:00 04/16/2014 23:59:59 CLS Outpatient [facility] ONC [id number] 02/19/2014 08:23:00 03/26/2014 00:01:00 DIS Outpatient DIXIE YUNG [facility] ONC [id number] 01/15/2014 07:42:00 01/15/2014 08:24:00 DIS Emergency LAVERNE CHRISTIANSON DO [facility] ER LEFT KNEE PAIN [id number] 12/26/2013 09:15:00 12/26/2013 23:59:59 CLS Outpatient [facility] ONC [id number] 10/31/2013 08:37:00 12/04/2013 00:01:00 DIS Outpatient DIXIE YUNG [facility] ONC [id number] 09/05/2013 09:40:00 09/05/2013 23:59:59 CLS Outpatient [facility] ONC [id number] 07/10/2013 08:49:00 08/13/2013 00:01:00 DIS Outpatient DIXIE YUNG [facility] ONC [id number] 05/15/2013 08:48:00 05/15/2013 23:59:59 CLS Outpatient [facility] ONC [id number] 04/17/2013 08:51:00 04/17/2013 13:09:00 DIS Outpatient MIGUEL GREEN MD [facility] SDC DYSPHAGIA [id number] 04/11/2013 13:52:00 04/11/2013 23:59:59 CLS Outpatient MIGUEL GREEN MD [facility] PREOP DYSPHAGIA [id number] 04/05/2013 16:56:00 04/05/2013 19:53:00 DIS Emergency SHAYLA CARPIO [facility] ER SOMETHING STUCK IN THROAT [id number] 03/13/2013 09:16:00 03/19/2013 00:01:00 DIS Outpatient DIXIE YUNG [facility] ONC [id number] 02/13/2013 07:51:00 02/13/2013 12:30:00 DIS Outpatient MIGUEL GREEN MD [facility] SDC SCREENING [id number] 02/12/2013 07:26:00 02/12/2013 23:59:59 CLS Outpatient MIGUEL GREEN MD [facility] PREOP SCREENING [id number] 01/16/2013 08:46:00 01/16/2013 23:59:59 CLS Outpatient [facility] ONC [id number] 12/11/2012 08:45:00 12/11/2012 23:59:59 CLS Outpatient MCCLENDON, [facility] RAD NHL [id number] 11/22/2012 12:27:00 11/27/2012 00:01:00 DIS Outpatient DIXIE YUNG N [facility] ONC [id number] 11/21/2012 09:57:00 11/21/2012 23:59:59 CLS Outpatient MCCLENDON, [facility] ONC [id number] 10/24/2012 15:33:00 10/24/2012 23:59:59 CLS Outpatient [facility] ONC [id number] 09/18/2012 08:10:00 09/18/2012 23:59:59 CLS Outpatient [facility]CCLENDON [facility] RAD NHL [id number] 09/26/2016 10:18:00 Document Registration [id number] 01/28/2015 14:33:00 Document Registration [id number] 01/28/2015 14:33:00 Document Registration [id number] 08/07/2012 09:08:00 Document Registration [id number] 05/17/2012 11:16:00 Document Registration [id number] 05/09/2012 13:03:00 Document Registration [id number] 04/17/2012 10:49:00 Document Registration
[2017-06-25] MEDS ORDERED: RT-ALBUTEROL/IPRATROPIUM 3 ML (DUONEB) VIAL INH ONE (18:45)
--- NOTE | 2017-06-25 18:46 | ED Respiratory ---
General Chief Complaint: Cough/Cold/Flu Symptoms Stated Complaint: HEADACHES Source: patient Exam Limitations: no limitations History of Present Illness Date Seen by Provider: Jun 25, 2017 Time Seen by Provider: 18:36 Initial Comments The patient presents to the ER by private conveyance with a chief complaint that for the last week she's had malaise and 3 days ago started having some chills but no objective fever. Today he woke up felt fine but then started to develop a headache, fever Tmax 100.3F and headache. He also had a lot of phlegm is been coughing up. He says he's been told in the past he has COPD but he does not smoke cigarettes and does not use any breathing treatments. He is not having any nausea vomiting or diarrhea. He has a little bit of achiness when he coughs around the base of his ribs on both sides. He denies any other history of asthma or lung cancer. When asked about his headache the patient denies that his head hurts just it feels hot and he's felt hot all day today. He denies any headache today. He says he took some Tylenol this morning after he got up and started feeling body aches. He is not sure of the time. Allergies and Home Medications Allergies Coded Allergies: No Known Drug Allergies (Unverified , 07/02/12) Home Medications Pantoprazole Sodium 40 Mg Tablet.dr, 40 MG PO DAILY, (Reported) Constitutional: chills, No diaphoresis, fever, malaise EENTM: No ear discharge, No hearing loss, No ear pain, No blurred vision, No double vision Respiratory: cough, phlegm, No short of breath, No wheezing Cardiovascular: see HPI, chest pain (Bilateral lower rib pain on coughing), No syncope Gastrointestinal: No abdominal pain, No constipation, No diarrhea, No nausea Genitourinary: No discharge Musculoskeletal: No back pain, No joint pain Skin: No pruritus, No rash Psychiatric/Neurological: Headache, Denies Numbness, Denies Paresthesia Past Zntwzvb-Dvpsfu-Xawnvp Hx Patient Social History Alcohol Use: Occasionally Uses Alcohol Beverage of Choice: Wine (Red) Smoking Status: Never a Smoker 2nd Hand Smoke Exposure: No Recent Hopitalizations: No Surgeries History of Surgeries: Yes (HERNIa repair x2, lymph node by of the neck, c/scope ) Respiratory History of Respiratory Disorde: Yes (patient denies but history of COPD and bronchitis per past records) Respiratory Disorders: Chronic Bronchitis, COPD Cardiovascular History of Cardiac Disorders: Yes (patient denies, but hyperlipidemia, hypertension, arrhythmia per records) Neurological History of Neurological Disord: No Reproductive System Hx Reproductive Disorders: No Gastrointestinal History of Gastrointestinal Di: No Musculoskeletal History of Musculoskeletal Dis: Yes (DEGENERTIVE JOINT DISEASE/ARTHRITIS) Endocrine History of Endocrine Disorders: No Cancer History of Cancer: Yes (THROAT (PREVIOUS HX of non-Hodgkin's lymphoma)) Integumentary History of Skin or Integumenta: No Family Medical History Significant Family History: Cancer, CAD Over 55 Years Old, Stroke Family Medial History: Patient reports no known family medical history. Physical Exam Vital Signs Vital Signs - First Documented 06/25/17 06/25/17 18:15 18:45 Temp 98.9 Pulse 86 Resp 18 B/P (MAP) 152/90 (110) Pulse Ox 95 O2 Delivery Room Air Capillary Refill : General Appearance: WD/WN, no apparent distress Eyes: Bilateral Eye Normal Inspection, Bilateral Eye PERRL, Bilateral Eye EOMI HEENT: PERRL/EOMI, normal ENT inspection, TMs normal, pharynx normal (Oral mucosa is moist) Respiratory: chest non-tender, decreased breath sounds, crackles (Bilateral bases faint) Cardiovascular: normal peripheral pulses, regular rate, rhythm Gastrointestinal: normal bowel sounds, non tender, soft Neurologic/Psychiatric: alert, normal mood/affect, oriented x 3, other (Hard of hearing with a hearing aid in the right ear) Skin: normal color, warm/dry Progress/Results/Core Measures Suspected Sepsis SIRS Temperature: Pulse: Respiratory Rate: Laboratory Tests 06/25/17 19:35: White Blood Count 8.9 Blood Pressure / Mean: Laboratory Tests 06/25/17 19:35: Creatinine 0.97, Platelet Count 188, Total Bilirubin 0.7 Results/Orders Lab Results Laboratory Tests Test 06/25/17 19:35 Range/Units White Blood Count 8.9 4.3-11.0 10^3/uL Red Blood Count 4.31 L 4.35-5.85 10^6/uL Hemoglobin 13.8 13.3-17.7 G/DL Hematocrit 40 40-54 % Mean Corpuscular Volume 92 80-99 FL Mean Corpuscular Hemoglobin 32 25-34 PG Mean Corpuscular Hemoglobin Concent 35 32-36 G/DL Red Cell Distribution Width 13.0 10.0-14.5 % Platelet Count 188 130-400 10^3/uL Mean Platelet Volume 9.9 7.4-10.4 FL Neutrophils (%) (Auto) 66 42-75 % Lymphocytes (%) (Auto) 21 12-44 % Monocytes (%) (Auto) 13 H 0-12 % Eosinophils (%) (Auto) 1 0-10 % Basophils (%) (Auto) 0 0-10 % Neutrophils # (Auto) 5.8 1.8-7.8 X 10^3 Lymphocytes # (Auto) 1.8 1.0-4.0 X 10^3 Monocytes # (Auto) 1.1 H 0.0-1.0 X 10^3 Eosinophils # (Auto) 0.1 0.0-0.3 10^3/uL Basophils # (Auto) 0.0 0.0-0.1 10^3/uL Sodium Level 138 135-145 MMOL/L Potassium Level 3.9 3.6-5.0 MMOL/L Chloride Level 104 98-107 MMOL/L Carbon Dioxide Level 23 21-32 MMOL/L Anion Gap 11 5-14 MMOL/L Blood Urea Nitrogen 19 H 7-18 MG/DL Creatinine 0.97 0.60-1.30 MG/DL Estimat Glomerular Filtration Rate > 60 BUN/Creatinine Ratio 20 Glucose Level 121 H 70-105 MG/DL Calcium Level 9.2 8.5-10.1 MG/DL Total Bilirubin 0.7 0.1-1.0 MG/DL Aspartate Amino Transf (AST/SGOT) 29 5-34 U/L Alanine Aminotransferase (ALT/SGPT) 30 0-55 U/L Alkaline Phosphatase 78 40-136 U/L C-Reactive Protein High Sensitivity 13.22 H 0.00-0.50 MG/DL Total Protein 6.7 6.4-8.2 GM/DL Albumin 3.9 3.2-4.5 GM/DL My Orders Orders - MARY HENDERSON Cbc With Automated Diff (06/25/17 18:39) Comprehensive Metabolic Panel (06/25/17 18:39) Hs C Reactive Protein (06/25/17 18:39) Influenza A And B Antigens (06/25/17 18:39) Chest Pa/Lat (2 View) (06/25/17 18:39) Albuterol/Ipra Inhalation Soln (Duoneb I (06/25/17 18:45) Svn Sm Volume Nebulizer Rt-Rfs (06/25/17 18:39) Medications Given in ED Current Medications Medications Dose Ordered Sig/Kimmy Route Start Time Stop Time Status Last Admin Dose Admin Albuterol/ Ipratropium 3 ml ONCE ONCE INH 06/25/17 18:45 06/25/17 18:46 DC 06/25/17 18:45 3 ML Vital Signs/I&O Vital Sign - Last 12Hours 06/25/17 06/25/17 18:15 18:45 Temp 98.9 Pulse 86 Resp 18 B/P (MAP) 152/90 (110) Pulse Ox 95 O2 Delivery Room Air Capillary Refill : Progress Note #1: Time: 18:47 Progress Note Concern for COPD exacerbation versus bronchitis versus pneumonia. The faint crackles would prompt a chest x-ray and some basic lab work given his having a productive cough. He is afebrile at this time and rest of his vitals except for the blood pressure being elevated are okay. Progress Note #2: Time: 20:42 Progress Note CRP is mildly elevated and the white count is normal. His presentation, chest x- ray and examination is consistent with COPD exacerbation. We will put him on some steroids and azithromycin and attempt outpatient therapy. Diagnostic Imaging Diagonstic Imaging: Xray Plain Films/CT/US/NM/MRI: chest (2v) Comments No acute cardiopulmonary processes noted. NAME: KIKE P[facility]TER [facility] REC#: [id number] PT STATUS: REG ER : 1935 PHYSICIAN: MARY HENDERSON MD ADMIT DATE: 06/25/17/ER Draft Date of Exam:06/25/17 CHEST PA/LAT (2 VIEW) INDICATION: Fever and cough. EXAMINATION: PA and lateral views of the chest were obtained at 7:31 p.m. FINDINGS: Heart and mediastinal silhouette are normal in appearance. The lungs appear clear. There is no pneumothorax or pleural fluid. There is mild hyperinflation. IMPRESSION: Mild hyperinflation. No acute infiltrate or pleural fluid. Unchanged appearance compared with 09/17/2016. Dictated on workstation # [id number] Dict: 06/25/171918 Trans: 06/25/171924 [facility] [id number] Interpreted by: ANGEL VALENCIA MD Electronically signed by: Reviewed: Reviewed by Me Departure Impression Impression: Primary Impression: COPD with exacerbation Disposition: 01 HOME, SELF-CARE Condition: Stable Departure-Patient Inst. Decision time for Depature: 20:42 Referrals: WOO JOHNSTON MD (PCP) Primary Care Physician Patient Instructions: Chronic Obstructive Pulmonary Disease (COPD), Including Emphysema Add. Discharge Instructions: Drink plenty of fluids and take the azithromycin 2 tablets to start and then one tablet a day until it is completed. production support supervisor the prednisone and take one tablet twice a day for the next 5 days. You may take one capsule of the Tessalon Perles every 6 hours for the cough as needed. If you're having coughing fits, shortness of breath or wheezing you can take 2 puffs of the albuterol/Ventolin inhaler every 4 hours as needed. Follow up this week with your primary care physician. If you are unable to catch your breath or you have chest pain then you should return to the ER for evaluation immediately. All discharge instructions reviewed with patient and/or family. Voiced understanding. Scripts Benzonatate (Tessalon Perle) 100 Mg Capsule 100 MG PO Q6H Y for COUGH, #20 CAP 0 Refills Prov: MARY HENDERSON 06/25/17 Albuterol Sulfate (VENTOLIN HFA) 1 Puff Puff 2 PUFF IH Q4H Y for WHEEZING, #1 EA 0 Refills 1 PUFF = 90 MCG Prov: MARY HENDERSON 06/25/17 Azithromycin (Azithromycin) 250 Mg Tablet 250 MG PO UD, #6 TAB 0 Refills TAKE 2 TABLETS ON DAY ONE THEN TAKE 1 TABLET DAILY FOR FOUR MORE DAYS Prov: MARY HENDERSON 06/25/17 Prednisone (Prednisone) 20 Mg Tab 20 MG PO BID for 5 Days, #10 TAB 0 Refills Prov: MARY HENDERSON 06/25/17 Copy Copies To 1: WOO JOHNSTON MD, TITUS J Jun 25, 2017 18:46
--- NOTE | 2017-06-25 19:26 | Diagnostic Imaging Report ---
INDICATION: Fever and cough. EXAMINATION: PA and lateral views of the chest were obtained at 7:31 p.m. FINDINGS: Heart and mediastinal silhouette are normal in appearance. The lungs appear clear. There is no pneumothorax or pleural fluid. There is mild hyperinflation. IMPRESSION: Mild hyperinflation. No acute infiltrate or pleural fluid. Unchanged appearance compared with 09/17/2016. Dictated by: Dictated on workstation # [id number]
[2017-06-25 19:45] LABS: BASOPHILS % (AUTO) 0 % (0-10); EOSINOPHILS # (AUTO) 0.1 10^3/uL (0.0-0.3); EOSINOPHILS % (AUTO) 1 % (0-10); HEMATOCRIT 40 % (40-54); HEMOGLOBIN 13.8 G/DL (13.3-17.7); LYMPHOCYTES # (AUTO) 1.8 X 10^3 (1.0-4.0); LYMPHOCYTES % (AUTO) 21 % (12-44); MEAN CORPUSCULAR HEMOGLOBIN 32 PG (25-34); MEAN CORPUSCULAR HGB CONC 35 G/DL (32-36); MEAN CORPUSCULAR VOLUME 92 FL (80-99); MEAN PLATELET VOLUME 9.9 FL (7.4-10.4); MONOCYTES # (AUTO) 1.1 X 10^3 (0.0-1.0); MONOCYTES % (AUTO) 13 % (0-12); NEUTROPHILS # (AUTO) 5.8 X 10^3 (1.8-7.8); NEUTROPHILS % (AUTO) 66 % (42-75); PLATELET COUNT 188 10^3/uL (130-400); RED BLOOD COUNT 4.31 10^6/uL (4.35-5.85); WHITE BLOOD COUNT 8.9 10^3/uL (4.3-11.0)
[2017-06-25 20:04] LABS: ALANINE AMINOTRANSFERASE 30 U/L (0-55); ALBUMIN 3.9 GM/DL (3.2-4.5); ALKALINE PHOSPHATASE 78 U/L (40-136); BILIRUBIN,TOTAL 0.7 MG/DL (0.1-1.0); BUN/CREATININE RATIO 20; CALCIUM 9.2 MG/DL (8.5-10.1); CARBON DIOXIDE 23 MMOL/L (21-32); CHLORIDE 104 MMOL/L (98-107); CREATININE SERUM 0.97 MG/DL (0.60-1.30); GFR ESTIMATED > 60; GLUCOSE 121 MG/DL (70-105); POTASSIUM 3.9 MMOL/L (3.6-5.0); SODIUM 138 MMOL/L (135-145); TOTAL PROTEIN 6.7 GM/DL (6.4-8.2)
[2017-06-25] MEDS ORDERED: AZIT250T12 PO (20:45)
[2017-06-25] MEDS ORDERED: PRD20T PO (20:45)
[2017-06-25] MEDS ORDERED: RT-ALBUINH IH (20:45)
[2017-06-25] MEDS ORDERED: BENZ-13 PO (20:45)
[2017-06-25 21:05] VITALS: BP 120/84
== END 2017-06-25 21:05 | disposition home or self-care (01) ==
LOC: EDUNIT# 18:06 → ER 18:07
DX: J44.1 Chronic obstructive pulmonary disease with (acute) exacerbation (principal); E78.00 Pure hypercholesterolemia, unspecified; I10 Essential (primary) hypertension; Z85.72 Personal history of non-Hodgkin lymphomas
CPT/HCPCS: 36415; 71046; 80053; 85025; 86141; 87804; 94640; 99282

== ENCOUNTER 2018-01-22 05:33 | Outpatient (CLI) | payer MEDICARE ==
[~2018-01-22] VITALS: Ht 170.2 cm; Wt 74.8 kg
[~2018-01-22 05:33] MED LIST changes: +AZIT250T12 PO; +BENZ100C18 PO; +PRD20T PO; +RT-ALBUINH IH
[2018-01-25] MEDS ORDERED: UBID1CAP53 PO (08:00)
[2018-01-25] MEDS ORDERED: HYDR-3816 PO (08:00)
== END 2018-01-22 10:12 | disposition home or self-care (01) ==
LOC: PREOP 05:33
PROVIDERS: ATTEND Surgery
DX: Z01.818 Encounter for other preprocedural examination (principal)

== ENCOUNTER 2018-01-25 06:48 | Day surgery (SDC) | payer MEDICARE ==
[~2018-01-25] VITALS: Ht 170.2 cm; Wt 74.8 kg
[2018-01-25 07:15] VITALS: BP 146/80
[2018-01-25] MEDS ORDERED: ceFAZolin INJECTION 1,000 MG in NS (IVPB) 50 ML IV ONE (07:30)
[2018-01-25] MEDS ORDERED: LACTATED RINGERS 1,000 ML IV PRN (07:30)
[2018-01-25] MEDS ORDERED: FAMOTIDINE 20MG/2ML IV (PEPCID) IV ONE (07:30)
[2018-01-25] MEDS: LACTATED RINGERS 1,000 ML IV PRN ×2 (07:30→10:40)
[2018-01-25] MEDS ORDERED: ONDANSETRON 4 MG/2 ML (SDV) Z0FRAN IV ONE (07:30)
--- NOTE | 2018-01-25 07:57 | Progress Note-Pre Operative ---
Pre-Operative Progress Note H&P Reviewed The H&P was reviewed, patient examined and no changes noted. Date Seen by Provider: Jan 25, 2018 Time Seen by Provider: 07:50 Date H&P Reviewed: Jan 25, 2018 Time H&P Reviewed: 07:55 Pre-Operative Diagnosis: Right inguinal hernia CHANA SAMANO APRN Jan 25, 2018 7:57 am
[2018-01-25] MEDS ORDERED: morphine INJ 10 MG/ML 1ML (SYR OR VIAL) IVP PRN (08:00)
[2018-01-25] MEDS ORDERED: ACETAMINOPHEN 325 MG TABLET PO PRN (08:00)
[2018-01-25] MEDS ORDERED: HYDROcodone/APAP 5 MG/325 MG (LORTAB) TAB PO ONE (08:00)
[2018-01-25] MEDS ORDERED: HYDR-3816 PO ×2 (08:00)
[2018-01-25] MEDS ORDERED: ONDANSETRON 4 MG/2 ML (SDV) Z0FRAN IVP PRN ×2 (08:00→11:15)
[2018-01-25] MEDS ORDERED: UBID1CAP53 PO ×2 (08:00)
--- NOTE | 2018-01-25 08:01 | Discharge Inst-Surgical ---
D/C Lap Instructions-KIDO New, Converted, or Re-Newed RX: RX on Chart Follow Up Appt in 2 weeks Activity as tolerated No driving for 24 hours No [address] while on pain medications No Heavy lifting/exertion for 6 weeks as directed. Incentive Spirometry use every 2 hours while awake Regular Diet Symptoms to Report: Fever over 101 degree F, Nausea/Vomiting Infection Signs and Symptoms to report: Increased redness, Foul odor of wound, Increased drainage Bathing instructions: May shower Operative Area Clean/Dry; Keep incision clean/dry If any problems/questions: Contact your physician or go to Emergency Room CHANA SAMANO APRN Jan 25, 2018 8:01 am
[2018-01-25] MEDS ORDERED: BUP/EPI 0.5% 1:200,000 (SENSORCAINE) 30 ML VIAL ONE (08:05)
[2018-01-25] MEDS ORDERED: LIDOCAINE PF 2% 2 ML (XYLOCAINE) VIAL ONE (08:45)
[2018-01-25] MEDS ORDERED: fentaNYL INJECTION 100 MCG/2 ML AMP ONE (08:45)
[2018-01-25] MEDS ORDERED: proPOfol 200 MG/20 ML (DIPRIVAN) VIAL IV ONE (08:45)
[2018-01-25] MEDS ORDERED: ROCURONIUM 10 MG/ML 5 ML SYRINGE IV ONE (08:45)
[2018-01-25] MEDS ORDERED: DEXAMETHASONE 10 MG/ML (DECADRON) 1 ML VIAL ONE (08:49)
[2018-01-25] MEDS ORDERED: SEVOFLURANE (ULTANE) 15 ML INHAL SOLN ONE (08:49)
[2018-01-25] MEDS ORDERED: ONDANSETRON 4 MG/2 ML (SDV) Z0FRAN ONE (08:49)
[2018-01-25] MEDS ORDERED: LACTATED RINGERS 1,000 ML IV ONE (10:49)
--- NOTE | 2018-01-25 11:00 | Progress Note-Post Operative ---
Post-Operative Progess Note Surgeon (s)/Reading Recovery Teacher (s) Surgeon MIGUEL GREEN MD Reading Recovery Teacher: laura bowling GENETIC SUPERVISOR Pre-Operative Diagnosis recurrent Right inguinal hernia Post-Operative Diagnosis same (indirect inguinal hernia) Procedure & Operative Findings Date of Procedure 01/25/18 Procedure Performed/Findings laparoscopic recurrent right inguinal hernia repair with mesh. Anesthesia Type GET Estimated Blood Loss Estimated blood loss (mL): minimal Specimens/Packing Specimens Removed none MIGUEL GREEN MD Jan 25, 2018 11:00 am
[2018-01-25] MEDS ORDERED: MEPERIDINE (DEMEROL) INJ 50 MG/ML IVP ONE (11:15)
[2018-01-25] MEDS ORDERED: morphine INJ 10 MG/ML 1ML (SYR OR VIAL) IVP ONE (11:15)
[2018-01-25 12:05] VITALS: BP 105/52
[2018-01-25 12:35] VITALS: BP 113/53
--- NOTE | 2018-01-25 12:55 | OPERATIVE REPORT ---
DATE OF SERVICE: 01/25/2018 ATTENDING PRIMARY CARE PHYSICIAN: Neville Cheney MD. PREOPERATIVE DIAGNOSIS: Second Recurrent right indirect hernia, reducible. POSTOPERATIVE DIAGNOSIS: Second Recurrent right indirect hernia, reducible. PROCEDURE: Laparoscopic right second recurrent inguinal hernia repair with mesh. SURGEON: Miguel Green MD. SUPPLY AND DISTRIBUTION MANAGER: Tyree Polanoc APRN. ANESTHESIA: General endotracheal. ESTIMATED BLOOD LOSS: Minimal. FINDINGS: Previous mesh identified. The hernia recurred inferior to the mesh. Nothing within the hernia sac. No left inguinal hernia component. DISPOSITION: The patient tolerated the procedure well. INDICATIONS FOR PROCEDURE: The patient is an 82-year-old male known to us. He was initially seen with a large right inguinal hernia and underwent a laparoscopic repair; however, had reoccurrence requiring an open repair in 10/2010. At this standpoint, he is doing well. He was initially diagnosed with non-Hodgkin's lymphoma in 2003 and underwent chemotherapy. He was seen in the office with complaints of recurrent right inguinal pain and swelling. He reports that this has been present for approximately 5 years; however, has grown larger in size. He was examined and found to have a recurrent right inguinal hernia. He reports that he understood for any hernia to repair adequately that an individual must refrain from heavy lifting or exertion; however, due to home or domestic circumstances and the need to help family, he had to continue to do heavy lifting and exertion. He states that he is otherwise doing well and besides the discomfort and a bulge in the right inguinal region, he is tolerating a regular diet and having normal bowel movements. DESCRIPTION OF PROCEDURE: The patient was brought to the operating room and laid supine on the table. After adequate IV pain and sedative medications and general endotracheal intubation, the abdomen was prepped and draped in a standard surgical fashion. A 0.5% Marcaine with epinephrine was used to anesthetize the infraumbilical rim and a crescent shaped skin incision made using a 15-blade. A sharp towel clamp was used to retract the abdominal wall anteriorly and a Veress needle was inserted with a low opening pressure of 0 mmHg and the abdomen was then insufflated to 15 mmHg pressure. The Veress needle was removed and a 10 mm Xcel trocar was placed followed by a 10 mm 45-degree angle laparoscope visualizing the peritoneal cavity. A four-quadrant abdominal exploration was performed. There was a right recurrent inguinal hernia identified. The previous laparoscopic mesh was identified with the recurrent indirect inguinal hernia identified inferior to the mesh. There was nothing within the hernia sac. There was no left inguinal hernia component. Under direct visualization, we then proceeded to place bilateral 5 mm ports after the skin and peritoneal lining were anesthetized using 0.5% Marcaine with epinephrine and transverse skin incisions were made using a 15-blade. The patient was then placed in a Trendelenburg position. The peritoneal lining starting lateral to the previous dissection site was then created using a Sonicision. We then proceeded inferiorly towards the conjoint tendon and inguinal ligament. We then proceeded to dissect around the previous mesh from a lateral to the medial position encompassing the mesh with the entire peritoneal lining. We proceeded medially until we reached Lamberto's ligament. We then proceeded with inferior dissection encompassing the hernia sac as well as the peritoneal lining and previous mesh as well as the hernia sac. Good hemostasis was observed. The cord and its surrounding contents were identified and spared throughout the process. A 3DMax polypropylene mesh was then placed through the 10 mm port site and tacked to Lamberto's ligament medially with absorbable tacks and to the conjoined tendon and inguinal ligament laterally. The entire previous mesh and peritoneal lining were then placed back over the newly placed mesh and a few of absorbable tacks placed to keep this layer in place. Good hemostasis was observed. The 10 mm port site fascia and peritoneum were then closed under direct visualization using a Julián-Peyman device and a 0 Vicryl suture. Abdomen was desufflated and remaining were ports. All skin incisions were closed. The abdomen was desufflated. The remaining ports were removed. All skin incisions were closed using 4-0 Monocryl running subcuticular sutures. Wounds were then cleaned and covered with Dermabond. The patient tolerated the procedure well. We will start IV and oral pain medication as well as a clear liquid diet. Once he is tolerating clears, has good pain control with oral pain medication and is ambulating well, we will discharge him home. We will recommend that due to the recurrent nature of his hernia and previous issues at home and needing to proceed with an early lifting or exertion in the past; however, not anymore, we will recommend that he does no heavy lifting or exertion with no pushing, pulling or lifting of more than 15 pounds for the next six weeks. We will also encourage scrotal support for the next six weeks as well. Job ID: [id number] DocumentID: [id number] Dictated Date: 01/25/2018 10:59:06 Tar Heater Operator Date: 01/25/2018 12:54:12 Dictated By: MIGUEL GREEN MD MTDD
[2018-01-25 13:05] VITALS: BP 113/53
--- NOTE | 2018-01-25 14:19 | Anesthesia-General Post-Op ---
General Patient Condition Mental Status/LOC: Same as Preop Cardiovascular: Satisfactory Nausea/Vomiting: Absent Respiratory: Satisfactory Pain: Controlled Complications: Absent Post Op Complications Complications None Follow Up Care/Instructions Patient Instructions None needed. Anesthesia/Patient Condition Patient Condition Patient is doing well, no complaints, stable vital signs, no apparent adverse anesthesia problems. No complications reported per nursing. ERICA GUERRERO CRNA Jan 25, 2018 14:19
== END 2018-01-25 13:20 | disposition home or self-care (01) ==
LOC: SDC 06:48
PROVIDERS: ATTEND Surgery
DX: K40.91 Unilateral inguinal hernia, without obstruction or gangrene, recurrent (principal); J44.9 Chronic obstructive pulmonary disease, unspecified; C85.90 Non-Hodgkin lymphoma, unspecified, unspecified site; Z92.21 Personal history of antineoplastic chemotherapy
CPT/HCPCS: 87081

== ENCOUNTER 2018-01-25 22:09 | Emergency (ER) | payer MEDICARE ==
[~2018-01-25] VITALS: Ht 170.2 cm; Wt 74.8 kg
[~2018-01-25 22:09] MED LIST changes: +HYDR-3816 PO; +UBID1CAP53 PO
--- NOTE | 2018-01-25 22:29 | ED GU-Male ---
General Chief Complaint: -Male Stated Complaint: PENIS BLACK AND BLUE,HERNIA SURGERY THIS AM Source: patient Exam Limitations: no limitations History of Present Illness Date Seen by Provider: Jan 25, 2018 Time Seen by Provider: 22:26 Initial Comments To ER with penile and scrotal ecchymosis. He had right inguinal hernia repair laparoscopically today at about noon by Dr. Katz. He is on no medications. He reports no discomfort only the concern about the appearance. He reports some discomfort with urination but is able to urinate. Timing/Duration: this evening Severity/Quality: mild Allergies and Home Medications Allergies Coded Allergies: No Known Drug Allergies (Unverified , 07/02/12) Home Medications Hydrocodone/Acetaminophen 1 Each Tablet, 1-2 TAB PO Q4H PRN for PAIN-MODERATE Prescribed by: CHANA SAMANO on 01/25/18 0800 Ubidecarenone/Vit E Acetate 1 Each Capsule, 1 EACH PO DAILY, (Reported) Patient Home Medication List Home Medication List Reviewed: Yes Review of Systems Review of Systems Constitutional: see HPI EENTM: see HPI Respiratory: no symptoms reported Cardiovascular: no symptoms reported Genitourinary: no symptoms reported Musculoskeletal: no symptoms reported Skin: see HPI Psychiatric/Neurological: No Symptoms Reported Endocrine: No Symptoms Reported Past Kuddung-Jwubxx-Rlphiq Hx Patient Social History Alcohol Beverage of Choice: Wine 2nd Hand Smoke Exposure: No Recent Foreign Travel: No Contact w/Someone Who Travel: No Recent Hopitalizations: No Seasonal Allergies Seasonal Allergies: No Past Medical History Surgeries: Yes (HERNIa repair x2, lymph node by of the neck, c/scope) Respiratory: Yes (patient denies but history of COPD and bronchitis per past records) Chronic Bronchitis, COPD Cardiac: Yes (patient denies, but hyperlipidemia, hypertension, arrhythmia per records) Neurological: No Reproductive Disorders: No Gastrointestinal: No Musculoskeletal: Yes (DEGENERTIVE JOINT DISEASE/ARTHRITIS) Endocrine: No Cancer: Yes (THROAT (PREVIOUS HX of non-Hodgkin's lymphoma)) Integumentary: No Family Medical History Patient reports no known family medical history. Cancer, CAD Over 55 Years Old, Stroke Physical Exam Vital Signs Capillary Refill : Height, Weight, BMI Height: 5'7.00" Weight: 165lbs. 0.0oz. 74.863396zl; 25.8 BMI Method:Stated General Appearance: WD/WN, no apparent distress HEENT: PERRL/EOMI, normal ENT inspection Neck: non-tender, full range of motion Gastrointestinal: normal bowel sounds, soft, other (minimal suprapubic tenderness) Genital/Rectal: other (exam with SARIAH PETERSON at the bedside. There is ecchymosis of the penis and scrotum down into the perineum. There is no significant swelling, no phimosis.) Neurologic/Psychiatric: alert, normal mood/affect, oriented x 3 Skin: normal color, warm/dry Progress/Results/Core Measures Suspected Sepsis SIRS Temperature: Pulse: Respiratory Rate: Blood Pressure / Mean: Results/Orders Vital Signs/I&O Capillary Refill : Departure Communication (Admissions) Patient and family were easily reassured that this is a normal finding postoperatively. Impression Primary Impression: Postoperative ecchymosis Disposition: 01 HOME, SELF-CARE Condition: Stable Departure-Patient Inst. Decision time for Depature: 22:28 Referrals: WOO JOHNSTON MD (PCP/Family) Primary Care Physician Patient Instructions: Surgical Wound (DC) Add. Discharge Instructions: 1. This bruising is expected and nothing to be concerned about at this point. U should become concerned if she get lightheaded, has severe abdominal pain or unable to urinate. This bruising and swelling may persist for 2-3 weeks. All discharge instructions reviewed with patient and/or family. Voiced understanding. Copy Copies To 1: MIGUEL KATZ MD, PETER J APRN Jan 25, 2018 22:29
[2018-01-25 22:34] VITALS: BP 113/68
== END 2018-01-25 22:36 | disposition home or self-care (01) ==
LOC: EDUNIT# 22:09 → ER 22:10
DX: K91.870 Postprocedural hematoma of a digestive system organ or structure following a digestive system procedure (principal); J44.9 Chronic obstructive pulmonary disease, unspecified; E78.5 Hyperlipidemia, unspecified; I10 Essential (primary) hypertension; Z85.72 Personal history of non-Hodgkin lymphomas; Z82.49 Family history of ischemic heart disease and other diseases of the circulatory system; Z98.890 Other specified postprocedural states
CPT/HCPCS: 99284

== ENCOUNTER 2019-04-07 19:11 | Emergency (ER) | payer MEDICARE ==
[~2019-04-07] VITALS: Ht 170 cm; Wt 75.0 kg
[2019-04-07 19:47] LABS: BASOPHILS % (AUTO) 0 % (0-10); EOSINOPHILS # (AUTO) 0.2 10^3/uL (0.0-0.3); EOSINOPHILS % (AUTO) 3 % (0-10); HEMATOCRIT 48 % (40-54); HEMOGLOBIN 15.9 G/DL (13.3-17.7); LYMPHOCYTES # (AUTO) 1.6 X 10^3 (1.0-4.0); LYMPHOCYTES % (AUTO) 29 % (12-44); MEAN CORPUSCULAR HEMOGLOBIN 31 PG (25-34); MEAN CORPUSCULAR HGB CONC 33 G/DL (32-36); MEAN CORPUSCULAR VOLUME 92 FL (80-99); MEAN PLATELET VOLUME 9.7 FL (7.4-10.4); MONOCYTES # (AUTO) 0.9 X 10^3 (0.0-1.0); MONOCYTES % (AUTO) 15 % (0-12); NEUTROPHILS % (AUTO) 52 % (42-75); PLATELET COUNT 233 10^3/uL (130-400); WHITE BLOOD COUNT 5.7 10^3/uL (4.3-11.0)
[2019-04-07 20:07] LABS: ALBUMIN 4.4 GM/DL (3.2-4.5); BILIRUBIN,TOTAL 0.3 MG/DL (0.1-1.0); CALCIUM 9.7 MG/DL (8.5-10.1); CREATININE SERUM 1.2 MG/DL (0.60-1.30); POTASSIUM 4.2 MMOL/L (3.6-5.0); TOTAL PROTEIN 6.8 GM/DL (6.4-8.2)
[2019-04-07 20:31] LABS: BILIRUBIN,URINE NEGATIVE (NEGATIVE); CLARITY,URINE CLEAR; COLOR,URINE YELLOW; GLUCOSE, URINE (UA) NEGATIVE (NEGATIVE); KETONES,URINE NEGATIVE (NEGATIVE); LEUKOCYTE ESTERASE ,URINE NEGATIVE (NEGATIVE); NITRITE,URINE NEGATIVE (NEGATIVE); PROTEIN,URINE NEGATIVE (NEGATIVE)
[2019-04-07 20:39] LABS: BACTERIA,URINE NEGATIVE /HPF
[2019-04-07] MEDS ORDERED: PERM60CR4 TP (21:26)
--- NOTE | 2019-04-07 21:26 | ED General ---
General Chief Complaint: General Problems/Pain Stated Complaint: CONFUSION Nursing Triage Note: PT PRESENTS TO ED ROOM FOUR C/O ACUTE ONSET CONFUSION THAT THE PT STATES ONSET SOMETIME THIS AM. PT IS ALERT TO PLACE, PERSON AND SITUATION BUT NOT TIME. Nursing Sepsis Screen: No Definite Risk Source of Information: Patient Exam Limitations: No Limitations History of Present Illness Date Seen by Provider: Apr 07, 2019 Time Seen by Provider: 19:21 Initial Comments This 83-year-old gentleman presents to the emergency room by private vehicle accompanied by his and daughter because of confusion. He took a dose of cyproheptadine around 15:00. He took a nap and woke up around 18:00. He was confused upon waking. He was disoriented to time of day, date, and events for the day. He has no focal neurologic deficits. The cyproheptadine was prescribed for a rash. Allergies and Home Medications Allergies Coded Allergies: No Known Drug Allergies (Unverified , 07/02/12) Home Medications Hydrocodone/Acetaminophen 1 Each Tablet, 1-2 TAB PO Q4H PRN for PAIN-MODERATE Prescribed by: CHANA SAMANO on 01/25/18 0800 Permethrin 60 Gm Cream..g., 60 GM TP ONCE Apply head to toe with special attention to affected areas. Sleep and shower/bathe to wash off next day. Prescribed by: MACI LYON on 04/07/192125 Ubidecarenone/Vit E Acetate 1 Each Capsule, 1 EACH PO DAILY, (Reported) Patient Home Medication List Home Medication List Reviewed: Yes Review of Systems Review of Systems Constitutional: no symptoms reported EENTM: no symptoms reported Respiratory: no symptoms reported Cardiovascular: no symptoms reported Gastrointestinal: no symptoms reported Genitourinary: no symptoms reported Musculoskeletal: no symptoms reported Skin: see HPI Psychiatric/Neurological: See HPI Hematologic/Lymphatic: No Symptoms Reported Immunological/Allergic: no symptoms reported Past Kqjtomx-Miasdw-Yhjhzx Hx Patient Social History Alcohol Use: Denies Use Number of Drinks Today: Alcohol Beverage of Choice: Wine Recreational Drug Use: No Smoking Status: Never a Smoker 2nd Hand Smoke Exposure: No Recent Foreign Travel: No Contact w/Someone Who Travel: No Recent Infectious Disease Expo: No Recent Hopitalizations: No Physical Abuse: No Sexual Abuse: No Mistreated: No Fear: No Immunizations Up To Date Tetanus Booster (TDap): Unknown PED Vaccines UTD: Yes Seasonal Allergies Seasonal Allergies: No Past Medical History Surgeries: Yes (L&R inguinal hernia repair, lymph node by of the neck, knee scope, ) Respiratory: Yes (patient denies but history of COPD and bronchitis per past records) Chronic Bronchitis, COPD Cardiac: Yes (patient denies, but hyperlipidemia, hypertension, arrhythmia per records) Neurological: No Reproductive Disorders: No Gastrointestinal: No Musculoskeletal: Yes (DEGENERTIVE JOINT DISEASE/ARTHRITIS) Endocrine: No Cancer: Yes (THROAT (PREVIOUS HX of non-Hodgkin's lymphoma)) Psychosocial: No Integumentary: Yes (chronic skin rash) Blood Disorders: No Family Medical History Patient reports no known family medical history. Cancer, CAD Over 55 Years Old, Stroke Physical Exam Vital Signs Vital Signs - First Documented 04/07/19 19:24 Temp 36.7 Pulse 74 Resp 20 B/P (MAP) 154/94 (114) Pulse Ox 95 O2 Delivery Room Air Capillary Refill : Less Than 3 Seconds Height, Weight, BMI Height: 5'7.00" Weight: 165lbs. 0.0oz. 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 as Tested Skin: Normal Color, Warm/Dry, Rash (scattered rash on the extremities and hips) Progress/Results/Core Measures Suspected Sepsis Recent Fever Within 48 Hours: No Infection Criteria Present: Suspected New Infection New/Unexplained Altered Menta: Yes Sepsis Screen: No Definite Risk SIRS Temperature: Pulse: 74 Respiratory Rate: 20 Laboratory Tests 04/07/19 19:40: White Blood Count 5.7 Blood Pressure 154 /94 Mean: 114 Laboratory Tests 04/07/19 19:40: Creatinine 1.20, Platelet Count 233, Total Bilirubin 0.3 Results/Orders Lab Results Laboratory Tests Test 04/07/19 19:40 04/07/19 20:24 Range/Units White Blood Count 5.7 4.3-11.0 10^3/uL Red Blood Count 5.20 4.35-5.85 10^6/uL Hemoglobin 15.9 13.3-17.7 G/DL Hematocrit 48 40-54 % Mean Corpuscular Volume 92 80-99 FL Mean Corpuscular Hemoglobin 31 25-34 PG Mean Corpuscular Hemoglobin Concent 33 32-36 G/DL Red Cell Distribution Width 13.0 10.0-14.5 % Platelet Count 233 130-400 10^3/uL Mean Platelet Volume 9.7 7.4-10.4 FL Neutrophils (%) (Auto) 52 42-75 % Lymphocytes (%) (Auto) 29 12-44 % Monocytes (%) (Auto) 15 H 0-12 % Eosinophils (%) (Auto) 3 0-10 % Basophils (%) (Auto) 0 0-10 % Neutrophils # (Auto) 3.0 1.8-7.8 X 10^3 Lymphocytes # (Auto) 1.6 1.0-4.0 X 10^3 Monocytes # (Auto) 0.9 0.0-1.0 X 10^3 Eosinophils # (Auto) 0.2 0.0-0.3 10^3/uL Basophils # (Auto) 0.0 0.0-0.1 10^3/uL Sodium Level 146 H 135-145 MMOL/L Potassium Level 4.2 3.6-5.0 MMOL/L Chloride Level 106 98-107 MMOL/L Carbon Dioxide Level 26 21-32 MMOL/L Anion Gap 14 5-14 MMOL/L Blood Urea Nitrogen 13 7-18 MG/DL Creatinine 1.20 0.60-1.30 MG/DL Estimat Glomerular Filtration Rate 58 BUN/Creatinine Ratio 11 Glucose Level 105 70-105 MG/DL Calcium Level 9.7 8.5-10.1 MG/DL Corrected Calcium 9.4 8.5-10.1 MG/DL Total Bilirubin 0.3 0.1-1.0 MG/DL Aspartate Amino Transf (AST/SGOT) 25 5-34 U/L Alanine Aminotransferase (ALT/SGPT) 22 0-55 U/L Alkaline Phosphatase 73 40-136 U/L Total Protein 6.8 6.4-8.2 GM/DL Albumin 4.4 3.2-4.5 GM/DL Urine Color YELLOW Urine Clarity CLEAR Urine pH 6.0 5-9 Urine Specific Hominy 1.020 1.016-1.022 Urine Protein NEGATIVE NEGATIVE Urine Glucose (UA) NEGATIVE NEGATIVE Urine Ketones NEGATIVE NEGATIVE Urine Nitrite NEGATIVE NEGATIVE Urine Bilirubin NEGATIVE NEGATIVE Urine Urobilinogen 0.2 < = 1.0 MG/DL Urine Leukocyte Esterase NEGATIVE NEGATIVE Urine RBC (Auto) NEGATIVE NEGATIVE Urine RBC NONE /HPF Urine WBC NONE /HPF Urine Crystals NONE /LPF Urine Bacteria NEGATIVE /HPF Urine Casts NONE /LPF Urine Mucus NEGATIVE /LPF Urine Culture Indicated NO My Orders Orders - MACI QUINTANA MD Cbc With Automated Diff (04/07/19 19:20) Comprehensive Metabolic Panel (04/07/19 19:20) Ua Culture If Indicated (04/07/19 19:20) Ed Iv/Invasive Line Start (04/07/19 19:20) Vital Signs/I&O 04/07/19 04/07/19 19:24 21:39 Temp 36.7 36.7 Pulse 74 59 Resp 20 20 B/P (MAP) 154/94 (114) 156/88 (114) Pulse Ox 95 95 O2 Delivery Room Air Room Air Capillary Refill : Less Than 3 Seconds Blood Pressure Mean: 114 POS Progress Note : Progress Note Workup was unremarkable. Patient's family stated he improved during the course of his ER stay. No focal deficits were measured on exam. Symptoms were likely due to adverse reaction from cyproheptadine. Departure Impression Primary Impression: Confusion Additional Impressions: Adverse drug reaction Qualified Codes: T50.905A - Adverse effect of unspecified drugs, medicaments and biological substances, initial encounter Rash Disposition: 01 HOME, SELF-CARE Condition: Improved Departure-Patient Inst. Decision time for Depature: 21:15 Referrals: WOO JOHNSTON MD (PCP/Family) Primary Care Physician Patient Instructions: Skin Rash Add. Discharge Instructions: Avoid use of antihistamines that can cause drowsiness or confusion such as Benadryl, diphenhydramine, or cyproheptadine. As an alternative you can use nondrowsy antihistamines such as Claritin (loratadine) or Zyrtec (cetirizine). You may try permethrin cream as prescribed for your rash. If your rash is caused by mites (scabies) this cream should improvement. Return to care if you have any further problems or concerns. All discharge instructions reviewed with patient and/or family. Voiced understanding. Scripts Permethrin (Permethrin) 60 Gm Cream..g. 60 GM TP ONCE, #1 TUBE 1 Refill Apply head to toe with special attention to affected areas. Sleep and shower/bathe to wash off next day. Prov: MACI QUINTANA MD 04/07/19 Copy Copies To 1: WOO JOHNSTON MD, JOSHUA T MD Apr 07, 2019 21:26 POS
[2019-04-07 21:39] VITALS: BP 156/88
== END 2019-04-07 21:40 | disposition home or self-care (01) ==
LOC: EDUNIT# 19:11 → ER 19:13
DX: R41.0 Disorientation, unspecified (principal); T45.0X5A Adverse effect of antiallergic and antiemetic drugs, initial encounter; R21 Rash and other nonspecific skin eruption; J44.9 Chronic obstructive pulmonary disease, unspecified; I10 Essential (primary) hypertension; E78.5 Hyperlipidemia, unspecified; Z82.49 Family history of ischemic heart disease and other diseases of the circulatory system; Z85.818 Personal history of malignant neoplasm of other sites of lip, oral cavity, and pharynx; Z85.72 Personal history of non-Hodgkin lymphomas
CPT/HCPCS: 36415; 80053; 81000; 85025

== ENCOUNTER 2020-03-22 08:07 | Emergency (ER) | payer MEDICARE ==
[~2020-03-22] VITALS: Ht 167 cm; Wt 70.3 kg
[~2020-03-22 08:07] MED LIST changes: +HYDR-34 PO; -HYDR-3816 PO; +PERM60CR4 TP
[2020-03-22] MEDS ORDERED: CYCL10TA9 PO (08:25)
--- NOTE | 2020-03-22 08:25 | ED Back Pain ---
General Chief Complaint: Back Problems Stated Complaint: BACK PAIN Source of Information: Patient Exam Limitations: No Limitations History of Present Illness Date Seen by Provider: Mar 22, 2020 Time Seen by Provider: 08:08 Initial Comments The patient presents to the ER by private conveyance with chief complaint that about a month ago he tripped while working on a trailer and fell on his right side causing a lot of bruising and pain. He went to Dr. Dodge and was given a shot in the back but after a couple days took away all of his pain for about a week. The pain is come back so he went back to Dr. Dodge a couple days ago and was put on meloxicam which she says has not worked very well. He is using topical creams and heat but he says he cannot sleep at night because of the pain. He does not have a history of chronic back pain. He denies taking any medications and does not have a history of diabetes or heart disease. He's having no saddle anesthesia, numbness, tingling, incontinence or hesitancy of bowel and/or bladder. He has not have any other falls. Allergies and Home Medications Allergies Coded Allergies: cyproheptadine (Verified Adverse Reaction, Unknown, Confusion, 04/07/19) Home Medications Hydrocodone Bit/Acetaminophen 1 Each Tablet, 1-2 TAB PO Q4H PRN for PAIN- MODERATE Prescribed by: CHANA SAMANO on 01/25/18 0800 Permethrin 60 Gm Cream..g., 60 GM TP ONCE Apply head to toe with special attention to affected areas. Sleep and shower/bathe to wash off next day. Prescribed by: MACI LYON on 04/07/192125 Ubidecarenone/Vit E Acetate 1 Each Capsule, 1 EACH PO DAILY, (Reported) Patient Home Medication List Home Medication List Reviewed: Yes Review of Systems Constitutional: No chills, No fever EENTM: No ear discharge, No ear pain Respiratory: No cough, No short of breath Cardiovascular: No chest pain, No edema Gastrointestinal: No abdominal pain, No nausea, No vomiting Genitourinary: No decreased output, No discharge Musculoskeletal: back pain; No joint pain Skin: No change in color, No lumps All Other Systems Reviewed Negative Unless Noted: Yes Past Hgcpqst-Xilslt-Aokwmx Hx Patient Social History Alcohol Use: Occasionally Uses Alcohol Beverage of Choice: Wine Recreational Drug Use: No 2nd Hand Smoke Exposure: No Recent Foreign Travel: No Contact w/Someone Who Travel: No Recent Hopitalizations: No Immunizations Up To Date Tetanus Booster (TDap): Unknown PED Vaccines UTD: Yes Seasonal Allergies Seasonal Allergies: No Past Medical History Surgeries: Yes (L&R inguinal hernia repair, lymph node by of the neck, knee scope, ) Respiratory: Yes (patient denies but history of COPD and bronchitis per past records) Chronic Bronchitis, COPD Cardiac: Yes (patient denies, but hyperlipidemia, hypertension, arrhythmia per records) Neurological: No Reproductive Disorders: No Gastrointestinal: No Musculoskeletal: Yes (DEGENERTIVE JOINT DISEASE/ARTHRITIS) Endocrine: No Cancer: Yes (THROAT (PREVIOUS HX of non-Hodgkin's lymphoma)) Psychosocial: No Integumentary: Yes (chronic skin rash) Blood Disorders: No Family Medical History Patient reports no known family medical history. Cancer, CAD Over 55 Years Old, Stroke Physical Exam Vital Signs Capillary Refill : Height, Weight, BMI Height: 5'7.00" Weight: 165lbs. 0.0oz. 74.014321ao; 25.00 BMI Method:Stated General Appearance: WD/WN, Mild Distress HEENT: PERRL/EOMI, Pharynx Normal, Moist Mucous Membranes Neck: Full Range of Motion, Normal Inspection Cardiovascular: Regular Rate, Rhythm, No Edema Respiratory: Lungs Clear, Normal Breath Sounds, No Accessory Muscle Use, No Respiratory Distress Gastrointestinal: Non Tender, Soft Back: Normal Inspection, No CVA Tenderness, No Vertebral Tenderness, Muscle Spasm (bilateral paraspinous vertebral muscle spasm and tenderness to palpation especially on the right side lumbar spine.) Extremity: Normal Capillary Refill, Normal Inspection, Normal Range of Motion Neurologic/Psychiatric: Alert, Oriented x3, No Motor/Sensory Deficits, Normal Mood/Affect Skin: Normal Color, Warm/Dry Progress/Results/Core Measures Results/Orders My Orders Orders - MARY HENDERSON Methylprednisolone Acetate Inj (Depo-Med (03/22/20 08:30) Progress Progress Note : Time: 08:22 Progress Note Plan to put him on muscle relaxer give him a shot of Depo-Medrol and have him follow-up with physical therapy. Departure Impression Primary Impression: Acute low back pain due to trauma Disposition: 01 HOME, SELF-CARE Condition: Stable Departure-Patient Inst. Decision time for Depature: 08:22 Referrals: KING DODGE MD (PCP/Family) Primary Care Physician Patient Instructions: Low Back Pain (DC), Back Stretches on Floor Add. Discharge Instructions: Continue to use heat and topical creams for your back. You may continue to use the meloxicam as prescribed. You may use omeprazole/pantoprazole 40 mg daily to help reduce the gut symptoms that meloxicam causes. If you're having spasms or muscle pain in the back keeping you from sleeping then you may use one tablet of cyclobenzaprine every 8 hours as necessary. Cyclobenzaprine will cause drowsiness. Do not operate heavy machinery or drive on long distances while using the medication. If it causes you to be groggy in the morning then you may cut the tablet in half. The steroids should last about a week and may cause some increased energy and difficulty sleeping. Tomorrow call and set up an appointment with Dr. Dodge in about 2-3 weeks. Tomorrow call [facility] physical therapy at [phone] and request a no-cost physical therapy consultation. Return to the ER promptly if you're having inability to urinate or controlling bowel, numbness, weakness/inability to walk. All discharge instructions reviewed with patient and/or family. Voiced understanding. Scripts Cyclobenzaprine HCl (Cyclobenzaprine HCl) 10 Mg Tablet 10 MG PO Q8H PRN for SPASMS, #15 TAB 0 Refills Prov: MARY HENDERSON 03/22/20 Copy Copies To 1: KING DODGE MD, TITUS J Mar 22, 2020 08:25
[2020-03-22] MEDS ORDERED: methylPREDNISolone 40 MG/ML (DEPO MEDROL) VIAL IM ONE (08:30)
[2020-03-22 08:39] VITALS: BP 145/90
== END 2020-03-22 08:39 | disposition home or self-care (01) ==
LOC: EDUNIT# 08:07 → ER 08:08
DX: M54.5 Low back pain (principal); Z85.21 Personal history of malignant neoplasm of larynx; Z88.8 Allergy status to other drugs, medicaments and biological substances
CPT/HCPCS: 99284

== ENCOUNTER 2020-04-17 11:02 | Outpatient (RCR) | payer MEDICARE ==
[~2020-04-17 11:02] MED LIST changes: +CYCL10TA9 PO
== END 2020-05-11 15:38 | disposition home or self-care (01) ==
PROVIDERS: ATTEND Pediatrics
DX: M54.9 Dorsalgia, unspecified (principal)

== ENCOUNTER 2020-10-01 09:00 | Outpatient (RCR) | payer MEDICARE ==
[2020-10-08] MEDS ORDERED: DOCU-143 PO (16:00)
[2020-10-08] MEDS ORDERED: HYDR-3817 PO (16:00)
[2020-10-11] MEDS ORDERED: POLY17PO6 PO (12:56)
[2020-10-11] MEDS ORDERED: OXYC1TAB11 PO (12:56)
[2020-10-11] MEDS ORDERED: METO-310 PO (12:56)
== END 2020-10-20 09:11 | disposition home or self-care (01) ==
PROVIDERS: ATTEND Pediatrics
DX: M54.5 Low back pain (principal)

== ENCOUNTER 2020-10-08 12:00 | Emergency (ER) | payer MEDICARE ==
[~2020-10-08] VITALS: Ht 170 cm; Wt 69.0 kg
[2020-10-08] MEDS ORDERED: HYDROcodone/APAP 5 MG/325 MG (LORTAB) TAB PO ONE (12:30)
--- NOTE | 2020-10-08 12:30 | ED Back Pain ---
General Chief Complaint: Back Problems Stated Complaint: BACK PAIN Source of Information: Patient Exam Limitations: No Limitations History of Present Illness Date Seen by Provider: Oct 08, 2020 Time Seen by Provider: 12:28 Initial Comments To ER with severe left flank pain that began after a fall off of a trailer in May. He was not evaluated at the time. He is now unable to sleep because of the pain. It does not radiate. He states that he is lost about 12 pounds over the past few months. No hematuria. No anticoagulant use. He states that after he fell this area was very red and tender. Location: Paraspinous Muscles Timing/Duration: Other Severity: Moderate Pain/Injury Location: Back Associated Symptoms: denies symptoms; No loss of bladder control, No loss of bowel control Allergies and Home Medications Allergies Coded Allergies: cyproheptadine (Verified Adverse Reaction, Unknown, Confusion, 04/07/19) Home Medications Cyclobenzaprine HCl 10 Mg Tablet, 10 MG PO Q8H PRN for SPASMS Prescribed by: MARY HENDERSON on 03/22/20 0825 Docusate Sodium 100 Mg Capsule, 100 MG PO BID Prescribed by: CHILO SEAY on 10/08/20 1600 Hydrocodone Bit/Acetaminophen 1 Each Tablet, 1-2 TAB PO Q4H PRN for PAIN- MODERATE Prescribed by: CHANA SAMANO on 01/25/18 0800 Hydrocodone/Acetaminophen 1 Each Tablet, 1 EACH PO Q4H PRN for PAIN-MODERATE (5- 7) Prescribed by: CHILO SEAY on 10/08/20 1600 Permethrin 60 Gm Cream..g., 60 GM TP ONCE Apply head to toe with special attention to affected areas. Sleep and shower/bathe to wash off next day. Prescribed by: MACI LYON on 04/07/19 2126 Ubidecarenone/Vit E Acetate 1 Each Capsule, 1 EACH PO DAILY, (Reported) Patient Home Medication List Home Medication List Reviewed: Yes Review of Systems Constitutional: see HPI EENTM: see HPI Respiratory: no symptoms reported Cardiovascular: no symptoms reported Genitourinary: no symptoms reported Musculoskeletal: see HPI, back pain Skin: no symptoms reported Psychiatric/Neurological: No Symptoms Reported Past Khudpmf-Tkpfii-Xahics Hx Patient Social History Alcohol Beverage of Choice: Wine 2nd Hand Smoke Exposure: No Recent Hopitalizations: No Immunizations Up To Date Tetanus Booster (TDap): Unknown PED Vaccines UTD: Yes Seasonal Allergies Seasonal Allergies: No Past Medical History Surgeries: Yes (L&R inguinal hernia repair, lymph node by of the neck, knee scope, ) Respiratory: Yes (patient denies but history of COPD and bronchitis per past records) Chronic Bronchitis, COPD Cardiac: Yes (patient denies, but hyperlipidemia, hypertension, arrhythmia per records) Neurological: No Reproductive Disorders: No Gastrointestinal: No Musculoskeletal: Yes (DEGENERTIVE JOINT DISEASE/ARTHRITIS) Endocrine: No Cancer: Yes (THROAT (PREVIOUS HX of non-Hodgkin's lymphoma)) Psychosocial: No Integumentary: Yes (chronic skin rash) Blood Disorders: No Family Medical History Patient reports no known family medical history. Cancer, CAD Over 55 Years Old, Stroke Physical Exam Vital Signs Vital Signs - First Documented 10/08/20 12:15 Temp 36.6 Pulse 91 Resp 15 B/P (MAP) 139/72 (94) Pulse Ox 99 O2 Delivery Room Air Capillary Refill : Height, Weight, BMI Height: 5'7.00" Weight: 165lbs. 0.0oz. 74.935700bc; 25.00 BMI Method:Stated General Appearance: No Apparent Distress, WD/WN, Other (Alert and oriented very pleasant. The left leg is nontender to palpation and the overlying skin is normal in appearance without rash or other lesion. He walks without assistive device or antalgic gait.) Neck: Full Range of Motion, Normal Inspection Respiratory: No Accessory Muscle Use, No Respiratory Distress Gastrointestinal: Normal Bowel Sounds, Non Tender, Soft Extremity: Normal Capillary Refill, Normal Inspection Neurologic/Psychiatric: Alert, Oriented x3 Skin: Normal Color, Warm/Dry Progress/Results/Core Measures Results/Orders Lab Results Laboratory Tests Test 10/08/20 12:40 10/08/20 12:46 Range/Units White Blood Count 11.4 H 4.3-11.0 10^3/uL Red Blood Count 4.47 4.30-5.52 10^6/uL Hemoglobin 13.3 13.3-17.7 g/dL Hematocrit 40 40-54 % Mean Corpuscular Volume 88 80-99 fL Mean Corpuscular Hemoglobin 30 25-34 pg Mean Corpuscular Hemoglobin Concent 34 32-36 g/dL Red Cell Distribution Width 12.5 10.0-14.5 % Platelet Count 253 130-400 10^3/uL Mean Platelet Volume 10.1 9.0-12.2 fL Immature Granulocyte % (Auto) 0 % Neutrophils (%) (Auto) 77 H 42-75 % Lymphocytes (%) (Auto) 11 L 12-44 % Monocytes (%) (Auto) 11 0-12 % Eosinophils (%) (Auto) 1 0-10 % Basophils (%) (Auto) 0 0-10 % Neutrophils # (Auto) 8.9 H 1.8-7.8 10^3/uL Lymphocytes # (Auto) 1.2 1.0-4.0 10^3/uL Monocytes # (Auto) 1.2 H 0.0-1.0 10^3/uL Eosinophils # (Auto) 0.1 0.0-0.3 10^3/uL Basophils # (Auto) 0.0 0.0-0.1 10^3/uL Immature Granulocyte # (Auto) 0.1 0.0-0.1 10^3/uL Sodium Level 136 135-145 MMOL/L Potassium Level 3.7 3.6-5.0 MMOL/L Chloride Level 96 L 98-107 MMOL/L Carbon Dioxide Level 25 21-32 MMOL/L Anion Gap 15 H 5-14 MMOL/L Blood Urea Nitrogen 11 7-18 MG/DL Creatinine 0.89 0.60-1.30 MG/DL Estimat Glomerular Filtration Rate > 60 BUN/Creatinine Ratio 12 Glucose Level 104 70-105 MG/DL Calcium Level 9.4 8.5-10.1 MG/DL Urine Color YELLOW Urine Clarity CLEAR Urine pH 5.5 5-9 Urine Specific [place] 1.015 L 1.016-1.022 Urine Protein NEGATIVE NEGATIVE Urine Glucose (UA) NEGATIVE NEGATIVE Urine Ketones TRACE H NEGATIVE Urine Nitrite NEGATIVE NEGATIVE Urine Bilirubin NEGATIVE NEGATIVE Urine Urobilinogen 2.0 < = 1.0 MG/DL Urine Leukocyte Esterase NEGATIVE NEGATIVE Urine RBC (Auto) NEGATIVE NEGATIVE Urine RBC NONE /HPF Urine WBC RARE /HPF Urine Crystals NONE /LPF Urine Bacteria NEGATIVE /HPF Urine Casts NONE /LPF Urine Mucus NEGATIVE /LPF Urine Culture Indicated NO My Orders Orders - CHILO SEAY OCCUPATIONAL THERAPY PROGRAM DIRECTOR Cbc With Automated Diff (10/08/20 12:19) Basic Metabolic Panel (10/08/20 12:19) Ua Culture If Indicated (10/08/20 12:19) Ct Lumbar Spine Wo (10/08/20 12:19) Hydrocodone/Apap 5/325 Tablet (Lortab 5 (10/08/20 12:30) Mri Lumbar Spine W/Wo Contrast (10/08/20 13:34) Gadobutrol Inj (Radiology) (Gadavist Inj (10/08/20 14:30) Medications Given in ED Current Medications Medications Dose Ordered Sig/Kimmy Route Start Time Stop Time Status Last Admin Dose Admin Acetaminophen/ Hydrocodone Bitart 1 ea ONCE ONCE PO 10/08/20 12:30 10/08/20 12:31 DC 10/08/20 12:26 1 EA Gadobutrol 7.5 mmol ONCE ONCE IV 10/08/20 14:30 10/08/20 14:31 DC 10/08/20 14:40 707 MMOL Vital Signs/I&O 10/08/20 12:15 Temp 36.6 Pulse 91 Resp 15 B/P (MAP) 139/72 (94) Pulse Ox 99 O2 Delivery Room Air Departure Communication (Admissions) I discussed with him the likelihood of a recurrence of his non-Hodgkin's lymph nahed as a cause for the lytic lesions in his vertebrae and cause for his pain. He states "thats okay, I'm ready to go. I just got my anointing of the sick". 1556-is better after hydrocodone here. There is evidence of tumor abutting the epidural space. Patient has no difficulties with walking, he denies noting any weakness in his legs. He does not have any numbness in his legs no anesthesia or numbness of his genitals, no loss of bowel or bladder control. I called his primary care provider Dr. Dodge with whom he was to follow-up on the . We move that appointment up to the seventh, Monday morning at 11 AM. I went out with him to the car at the time of discharge, he walks fine. I discussed with his daughter Jayden who is in the car the findings and the plan of care and she was understanding of this. Family Conversation NAME: KIKE PORTER MED REC#: [id number] PT STATUS: REG ER : 1935 PHYSICIAN: CHILO SEAY APRN ADMIT DATE: 10/08/20/ER Draft Date of Exam:10/08/20 MRI LUMBAR SPINE W/WO CONTRAST PROCEDURE: MRI lumbar spine with and without contrast. TECHNIQUE: Multiplanar, multisequence MRI of the lumbar spine was performed with and without contrast. INDICATION: Back pain. Patient has abnormal CT study demonstrating permeative destructive lesion at L1 and L3. This study is performed for further evaluation. Correlation is made with a CT of the lumbar spine earlier same day. Curvature and alignment of the lumbar spine is normal. There is diffuse marrow replacement involving the L1 vertebral body. There is also involvement of the left pedicle in a portion of the facet. There is a small marrow replacing lesion involving the anterior aspect of the L2 vertebral body. There is a large marrow replacing lesion involving the L3 vertebral body. There is slight depression of the superior endplate of the L3 vertebral body, as seen on CT suggestive of minimal acute compression. No retropulsion is identified. Generalized degenerative disc disease is seen with desiccation at all levels. There is also significant disc space narrowing at L4-L5 and L5-S1 levels. The conus is unremarkable at the L1-L2 level. Postcontrast images demonstrate diffuse enhancement of the areas of marrow replacement of L1, L2 and L3. Abnormal tumor extension into the anterior epidural space at the L1 level is noted. This also involves the left neural foramen and left lateral recess. There does appear to be a left paraspinous enhancing component as well. Enhancing tissue in the ventral epidural space at the L1 level does produce a slight compression of the thecal sac and mild narrowing of the canal. No significant narrowing is seen however. Extensive central retroperitoneal lymphadenopathy is again noted. IMPRESSION: Marrow replacing lesions at L1, L2 and L3, as described. Abnormal tumor extension is identified into the anterior epidural space at the L1 level producing some mild compression on the thecal sac. Tumor also involves the left lateral recess and left neural foramen. There is a small left paraspinous soft tissue component as well. There are intraosseous lesions at L2 and L3 but no definite tumor extension beyond the vertebral bodies is identified. Extensive retroperitoneal lymphadenopathy is noted. Dictated on workstation # [id number] Dict: 10/08/20 1532 Trans: 10/08/20 1550 [facility] [id number] Interpreted by: KASHMIR CHENG MD Electronically signed by: NAME: KIKE PORTER [facility] REC#: [id number] PT STATUS: REG ER : 1935 PHYSICIAN: CHILO SEAY OCCUPATIONAL THERAPY PROGRAM DIRECTOR ADMIT DATE: 10/08/20/ER Draft Date of Exam:10/08/20 CT LUMBAR SPINE WO PROCEDURE: CT lumbar spine without contrast. TECHNIQUE: Multiple contiguous axial images were obtained through the lumbar spine without the use of intravenous contrast. Sagittal and coronal reformations were then performed. Auto Exposure Controls were utilized during the CT exam to meet ALARA standards for radiation dose reduction. INDICATION: Back pain. 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 Study comparison is limited to transmission axial images noncontrasted at most recent available metabolic PET CT that exam performed 12/11/2012. Having developed from the previous exam is permeative ill-defined lytic lesion in the L1 vertebral body eccentric to the left. There is cortical breakthrough through its posterior cortex and extension into the left pedicle as well as a likely some left greater than right ventral epidural extension of abnormal soft tissue. There is extensive periaortic retroperitoneal lymphadenopathy as well as paraspinal infiltration at the L1 level. Findings strongly suggest neoplastic recurrence and the pattern would be compatible with recurrence of lymphoma. The left pedicle is likely full-thickness cortical breakthrough medially and laterally. No displacement. The vertebral statures normal. There is equivocal vague irregularity of the L3 superior endplate eccentric to the right, its early involvement by neoplasm is suspected. This level shows likely pathological fracture through its superior endplate cortex with slight less than 10% stature loss at its middle one third. No retropulsion and no involvement of the neural arches. The remaining lumbar levels grossly unremarkable. There is partial lumbarization of the S1 segment chronic. There are degenerative changes to the SI joints. IMPRESSION: 1. Findings strongly suggest neoplastic recurrence with a pathological-appearing retroperitoneal and paraspinal lymphadenopathy, lytic destructive lesion to L1 and likely a early involvement of the L3 superior endplate which shows some mild pathological fracture (single column). No other suspected level involvement at CT but MRI is a more sensitive modality. 2. At the L1 level there is dorsal cortical breakthrough and likely ventral epidural extension of soft tissue which may encroach upon the spinal canal, further characterization with MRI as followup particularly if there are neurological symptoms present. Results phoned to the Emergency Room. Dictated on workstation # [id number] Dict: 10/08/20 1318 Trans: 10/08/[address] [facility] [id number] Interpreted by: AGUEDA LARSON Electronically signed by: Impression Primary Impression: Lytic lesion of vertebrae Disposition: HOME, SELF-CARE Condition: Stable Departure-Patient Inst. Decision time for Depature: 15:58 Referrals: KING DODGE MD (PCP/Family) Primary Care Physician Patient Instructions: NO INSTRUCTIONS GIVEN Add. Discharge Instructions: 1. Your appointment is with Dr. Dodge on Monday the at 11 AM. Take the p ain medication and the stool softener as directed. Return to ER for any worsening in the meantime such as inability to urinate or have a bowel movement or any weakness of your legs. All discharge instructions reviewed with patient and/or family. Voiced u nderstanding. Scripts Docusate Sodium (Colace) 100 Mg Capsule 100 MG PO BID, #30 CAP Prov: CHILO SEAY APRN 10/08/20 Hydrocodone/Acetaminophen (Hydrocodone-Acetamin 7.5-325) 1 Each Tablet 1 EACH PO Q4H PRN for PAIN-MODERATE (5-7), #20 TAB Prov: CHILO SEAY APRN 10/08/20 Copy Copies To 1: KING DODGE MD, PETER J APRN Oct 08, 2020 12:30
[2020-10-08 12:46] LABS: BASOPHILS % (AUTO) 0 % (0-10); EOSINOPHILS # (AUTO) 0.1 10^3/uL (0.0-0.3); EOSINOPHILS % (AUTO) 1 % (0-10); HEMATOCRIT 40 % (40-54); HEMOGLOBIN 13.3 g/dL (13.3-17.7); LYMPHOCYTES # (AUTO) 1.2 10^3/uL (1.0-4.0); LYMPHOCYTES % (AUTO) 11 % (12-44); MEAN CORPUSCULAR HEMOGLOBIN 30 pg (25-34); MEAN CORPUSCULAR HGB CONC 34 g/dL (32-36); MEAN CORPUSCULAR VOLUME 88 fL (80-99); MEAN PLATELET VOLUME 10.1 fL (9.0-12.2); MONOCYTES # (AUTO) 1.2 10^3/uL (0.0-1.0); MONOCYTES % (AUTO) 11 % (0-12); NEUTROPHILS # (AUTO) 8.9 10^3/uL (1.8-7.8); NEUTROPHILS % (AUTO) 77 % (42-75); PLATELET COUNT 253 10^3/uL (130-400); WHITE BLOOD COUNT 11.4 10^3/uL (4.3-11.0)
[2020-10-08 12:52] LABS: BILIRUBIN,URINE NEGATIVE (NEGATIVE); CLARITY,URINE CLEAR; COLOR,URINE YELLOW; GLUCOSE, URINE (UA) NEGATIVE (NEGATIVE); KETONES,URINE TRACE (NEGATIVE); LEUKOCYTE ESTERASE ,URINE NEGATIVE (NEGATIVE); NITRITE,URINE NEGATIVE (NEGATIVE); PH,URINE 5.5 (5-9); PROTEIN,URINE NEGATIVE (NEGATIVE)
[2020-10-08 12:55] LABS: CHLORIDE 96 MMOL/L (98-107); POTASSIUM 3.7 MMOL/L (3.6-5.0); SODIUM 136 MMOL/L (135-145)
[2020-10-08 12:56] LABS: CALCIUM 9.4 MG/DL (8.5-10.1)
[2020-10-08 12:57] LABS: GLUCOSE 104 MG/DL (70-105)
[2020-10-08 12:58] LABS: CARBON DIOXIDE 25 MMOL/L (21-32)
[2020-10-08 13:01] LABS: CREATININE SERUM 0.89 MG/DL (0.60-1.30); GFR ESTIMATED > 60
[2020-10-08 13:01] LABS: BACTERIA,URINE NEGATIVE /HPF; WBC,URINE RARE /HPF
[2020-10-08 13:02] LABS: BUN/CREATININE RATIO 12
--- NOTE | 2020-10-08 13:30 | Diagnostic Imaging Report ---
PROCEDURE: CT lumbar spine without contrast. TECHNIQUE: Multiple contiguous axial images were obtained through the lumbar spine without the use of intravenous contrast. Sagittal and coronal reformations were then performed. Auto Exposure Controls were utilized during the CT exam to meet ALARA standards for radiation dose reduction. INDICATION: Back pain. 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 Study comparison is limited to transmission axial images noncontrasted at most recent available metabolic PET CT that exam performed 12/11/2012. Having developed from the previous exam is permeative ill-defined lytic lesion in the L1 vertebral body eccentric to the left. There is cortical breakthrough through its posterior cortex and extension into the left pedicle as well as a likely some left greater than right ventral epidural extension of abnormal soft tissue. There is extensive periaortic retroperitoneal lymphadenopathy as well as paraspinal infiltration at the L1 level. Findings strongly suggest neoplastic recurrence and the pattern would be compatible with recurrence of lymphoma. The left pedicle is likely full-thickness cortical breakthrough medially and laterally. No displacement. The vertebral statures normal. There is equivocal vague irregularity of the L3 superior endplate eccentric to the right, its early involvement by neoplasm is suspected. This level shows likely pathological fracture through its superior endplate cortex with slight less than 10% stature loss at its middle one third. No retropulsion and no involvement of the neural arches. The remaining lumbar levels grossly unremarkable. There is partial lumbarization of the S1 segment chronic. There are degenerative changes to the SI joints. IMPRESSION: 1. Findings strongly suggest neoplastic recurrence with a pathological-appearing retroperitoneal and paraspinal lymphadenopathy, lytic destructive lesion to L1 and likely a early involvement of the L3 superior endplate which shows some mild pathological fracture (single column). No other suspected level involvement at CT but MRI is a more sensitive modality. 2. At the L1 level there is dorsal cortical breakthrough and likely ventral epidural extension of soft tissue which may encroach upon the spinal canal, further characterization with MRI as followup particularly if there are neurological symptoms present. Results phoned to the Emergency Room. Dictated by: Dictated on workstation # [id number]
[2020-10-08] MEDS ORDERED: GADOBUTROL 7.5 MMOL/7.5 ML (GADAVIST) VIAL IV ONE (14:30)
--- NOTE | 2020-10-08 15:50 | Diagnostic Imaging Report ---
PROCEDURE: MRI lumbar spine with and without contrast. TECHNIQUE: Multiplanar, multisequence MRI of the lumbar spine was performed with and without contrast. INDICATION: Back pain. Patient has abnormal CT study demonstrating permeative destructive lesion at L1 and L3. This study is performed for further evaluation. Correlation is made with a CT of the lumbar spine earlier same day. Curvature and alignment of the lumbar spine is normal. There is diffuse marrow replacement involving the L1 vertebral body. There is also involvement of the left pedicle in a portion of the facet. There is a small marrow replacing lesion involving the anterior aspect of the L2 vertebral body. There is a large marrow replacing lesion involving the L3 vertebral body. There is slight depression of the superior endplate of the L3 vertebral body, as seen on CT suggestive of minimal acute compression. No retropulsion is identified. Generalized degenerative disc disease is seen with desiccation at all levels. There is also significant disc space narrowing at L4-L5 and L5-S1 levels. The conus is unremarkable at the L1-L2 level. Postcontrast images demonstrate diffuse enhancement of the areas of marrow replacement of L1, L2 and L3. Abnormal tumor extension into the anterior epidural space at the L1 level is noted. This also involves the left neural foramen and left lateral recess. There does appear to be a left paraspinous enhancing component as well. Enhancing tissue in the ventral epidural space at the L1 level does produce a slight compression of the thecal sac and mild narrowing of the canal. No significant narrowing is seen however. Extensive central retroperitoneal lymphadenopathy is again noted. IMPRESSION: Marrow replacing lesions at L1, L2 and L3, as described. Abnormal tumor extension is identified into the anterior epidural space at the L1 level producing some mild compression on the thecal sac. Tumor also involves the left lateral recess and left neural foramen. There is a small left paraspinous soft tissue component as well. There are intraosseous lesions at L2 and L3 but no definite tumor extension beyond the vertebral bodies is identified. Extensive retroperitoneal lymphadenopathy is noted. Dictated by: Dictated on workstation # [id number]
[2020-10-08] MEDS ORDERED: DOCU-143 PO (16:00)
[2020-10-08] MEDS ORDERED: HYDR-3817 PO (16:00)
[2020-10-08 16:07] VITALS: BP 139/73
== END 2020-10-08 16:07 | disposition home or self-care (01) ==
LOC: EDUNIT# 12:00 → ER 12:02
DX: M89.8X8 Other specified disorders of bone, other site (principal); J44.9 Chronic obstructive pulmonary disease, unspecified; Z88.8 Allergy status to other drugs, medicaments and biological substances
CPT/HCPCS: 36415; 72131; 72158; 80048; 81000; 85025

== ENCOUNTER 2020-10-11 12:19 | Emergency (ER) | payer MEDICARE ==
[~2020-10-11] VITALS: Ht 170 cm; Wt 69.0 kg
[~2020-10-11 12:19] MED LIST changes: +DOCU-143 PO; +HYDR-3817 PO
[2020-10-11] MEDS ORDERED: METOCLOPRAMIDE 10 MG (REGLAN) TAB PO ONE (12:45)
--- NOTE | 2020-10-11 12:48 | ED GI ---
General Chief Complaint: Abdominal/GI Problems Stated Complaint: HICCUPS/ PROBLEM URINATING Source of Information: Patient Exam Limitations: No Limitations (CHILO SEAY APRN) History of Present Illness Date Seen by Provider: Oct 11, 2020 Time Seen by Provider: 12:45 Initial Comments To ER with reports of hiccups and problems urinating. He has a history of hiccups before after surgery for which she had to be given medications to control. He is getting them about every 15 seconds. He was seen here a few days ago by me for left flank pain. We did a lumbar spine CT which showed lytic lesions of L1 and L3. He also had some enlarged retroperitoneal lymph nodes. 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 He has an appointment with primary care Dr. King Dodge tomorrow at 11 AM. He denies fevers or chills but he does complain of constipation since starting the pain medication. He reports that it helped initially but has subsequently quit helping and he is having difficulty sleeping again. He is having no troubles with urination. He denies any pain or numbness in his legs or numbness of his genitals. Timing/Duration: 1-2 Days Severity/Quality: Moderate Radiation: No Radiation Activities at Onset: None (CHILO SEAY APRN) Allergies and Home Medications Allergies Coded Allergies: cyproheptadine (Verified Adverse Reaction, Unknown, Confusion, 04/07/19) Home Medications Cyclobenzaprine HCl 10 Mg Tablet, 10 MG PO Q8H PRN for SPASMS Prescribed by: MARY HENDERSON on 03/22/20 0825 Docusate Sodium 100 Mg Capsule, 100 MG PO BID Prescribed by: CHILO SEAY on 10/08/20 1600 Hydrocodone Bit/Acetaminophen 1 Each Tablet, 1-2 TAB PO Q4H PRN for PAIN- MODERATE Prescribed by: CHANA SAMANO on 01/25/18 0800 Hydrocodone/Acetaminophen 1 Each Tablet, 1 EACH PO Q4H PRN for PAIN-MODERATE (5- 7) Prescribed by: CHILO SEAY on 10/08/20 1600 Metoclopramide HCl 10 Mg Tablet, 10 MG PO BID Prescribed by: CHILO SEAY on 10/11/20 1256 Oxycodone HCl/Acetaminophen 1 Each Tablet, 1 EACH PO Q4H PRN for PAIN-MODERATE Prescribed by: CHILO SEAY on 10/11/20 1256 Permethrin 60 Gm Cream..g., 60 GM TP ONCE Apply head to toe with special attention to affected areas. Sleep and shower/bathe to wash off next day. Prescribed by: MACI LYON on 04/07/192125 Polyethylene Glycol 3350 17 Gm Powd.pack, 17 GM PO BID Prescribed by: CHILO SEAY on 10/11/20 1256 Ubidecarenone/Vit E Acetate 1 Each Capsule, 1 EACH PO DAILY, (Reported) Patient Home Medication List Home Medication List Reviewed: Yes (CHILO SEAY APRN) Review of Systems Review of Systems Constitutional: see HPI; No chills, No fever EENTM: No Symptoms Reported Respiratory: No Symptoms Reported Cardiovascular: No Symptoms Reported Gastrointestinal: See HPI, Abdominal Pain Genitourinary: No Symptoms Reported Musculoskeletal: no symptoms reported Skin: no symptoms reported Psychiatric/Neurological: No Symptoms Reported Endocrine: No Symptoms Reported Hematologic/Lymphatic: No Symptoms Reported (CHILO SEAY APRN) Past Keziwkw-Fldajw-Vmsroo Hx Patient Social History Alcohol Beverage of Choice: Wine 2nd Hand Smoke Exposure: No Recent Hopitalizations: No (CHILO SEAY APRN) Immunizations Up To Date Tetanus Booster (TDap): Unknown PED Vaccines UTD: Yes (CHILO SEAY APRN) Seasonal Allergies Seasonal Allergies: No (CHILO SEAY APRN) Past Medical History Surgeries: Yes (L&R inguinal hernia repair, lymph node by of the neck, knee scope, ) Respiratory: Yes (patient denies but history of COPD and bronchitis per past records) Chronic Bronchitis, COPD Cardiac: Yes (patient denies, but hyperlipidemia, hypertension, arrhythmia per records) Neurological: No Reproductive Disorders: No Gastrointestinal: No Musculoskeletal: Yes (DEGENERTIVE JOINT DISEASE/ARTHRITIS) Endocrine: No Cancer: Yes (THROAT (PREVIOUS HX of non-Hodgkin's lymphoma)) Psychosocial: No Integumentary: Yes (chronic skin rash) Blood Disorders: No (CHILO SEAY APRN) Family Medical History Patient reports no known family medical history. Cancer, CAD Over 55 Years Old, Stroke (CHILO SEAY APRN) Physical Exam Vital Signs Vital Signs - First Documented 10/11/20 12:30 Temp 36.0 Pulse 102 Resp 16 B/P (MAP) 133/74 (93) Pulse Ox 96 O2 Delivery Room Air (MACI QUINTANA MD) Vital Signs Capillary Refill : (CHILO SEAY APRN) Height/Weight/BMI Height: 5'7.00" Weight: 165lbs. 0.0oz. [id number]; 23.00 BMI Method:Stated General Appearance: WD/WN, no apparent distress HEENT: PERRL/EOMI, normal ENT inspection Respiratory: no respiratory distress, no accessory muscle use Cardiovascular: regular rate, rhythm, no murmur Gastrointestinal: normal bowel sounds, non tender, soft Extremities: normal range of motion, non-tender Neurologic/Psychiatric: alert, normal mood/affect, oriented x 3 Skin: normal color, warm/dry (CHILO SEAY APRN) Progress/Results/Core Measures Results/Orders Vital Signs/I&O 10/11/20 10/11/20 12:30 13:27 Temp 36.0 36.0 Pulse 102 102 Resp 16 16 B/P (MAP) 133/74 (93) 133/74 (93) Pulse Ox 96 96 O2 Delivery Room Air (MACI QUINTANA MD) Progress Progress Note : Progress Note I was physically present in the emergency department as attending physician during the care of this patient, but I was not directly involved in this patient's care. (MACI QUINTANA MD) Departure Impression Primary Impression: Hiccups Additional Impressions: non-hodgkin's lymphoma per history Lumbar vertebral lytic lesions Medication side effect Disposition: 01 HOME, SELF-CARE Condition: Stable Departure-Patient Inst. Decision time for Depature: 12:53 (CHILO SEAY APRN) Referrals: KING DODGE MD (PCP/Family) Primary Care Physician Patient Instructions: Hiccups Add. Discharge Instructions: 1. Take the stool softener that I prescribed in addition to the MiraLAX powder 1 cap full twice a day. Stop the hydrocodone and switch to the oxycodone. Add the Reglan. All discharge instructions reviewed with patient and/or family. Voiced understanding. Scripts Metoclopramide HCl (Reglan) 10 Mg Tablet 10 MG PO BID, #20 TAB Prov: CHILO SEAY APRN 10/11/20 Polyethylene Glycol 3350 (Miralax) 17 Gm Powd.pack 17 GM PO BID, #30 EACH Prov: CHILO SEAY APRN 10/11/20 Oxycodone HCl/Acetaminophen (Oxycodone-Acetaminophen 5-325) 1 Each Tablet 1 EACH PO Q4H PRN for PAIN-MODERATE MDD 6 for 3 Days, #20 TAB 0 Refills Prov: CHILO SEAY APRN 10/11/20 Copy Copies To 1: KING DODGE MD, PETER J APRN Oct 11, 2020 12:48 MACI QUINTANA MD Oct 12, 2020 09:57
[2020-10-11] MEDS ORDERED: METO-310 PO (12:56)
[2020-10-11] MEDS ORDERED: POLY17PO6 PO (12:56)
[2020-10-11] MEDS ORDERED: OXYC1TAB11 PO (12:56)
--- NOTE | 2020-10-11 13:14 | Diagnostic Imaging Report ---
INDICATION: Constipation since being put on pain medication. Recent cancer diagnosis TECHNIQUE: Single view chest with supine and upright radiographs of the abdomen. CORRELATION STUDY: Chest 06/25/2017 FINDINGS: Frontal radiograph of the chest demonstrates no acute abnormality. Old healed left posterior rib fracture deformities. Moderate stool retention throughout the colon. A few gas-filled loops of small bowel are also present, nonspecific. Gas and stool at the level of the rectum. Findings compatible with likely prior hernia repair over the right inguinal region. There is compression deformity with collapse of several thoracic and lumbar vertebral bodies. IMPRESSION: 1. Negative for acute cardiopulmonary abnormality. 2. Mild/moderate stool retention. No large fecal impaction. Dictated by: Dictated on workstation # [id number]
[2020-10-11 13:27] VITALS: BP 133/74
== END 2020-10-11 13:27 | disposition home or self-care (01) ==
LOC: EDUNIT# 12:19 → ER 12:22
DX: R06.6 Hiccough (principal); K59.00 Constipation, unspecified; T39.395A Adverse effect of other nonsteroidal anti-inflammatory drugs [NSAID], initial encounter; M48.8X6 Other specified spondylopathies, lumbar region; J44.9 Chronic obstructive pulmonary disease, unspecified; I10 Essential (primary) hypertension; Z85.72 Personal history of non-Hodgkin lymphomas
CPT/HCPCS: 74022